=== PATIENT | male | born 1995 | race Caucasian/White ===

== ENCOUNTER → 2018-02-06 16:09 | Outpatient (CLI) | payer OTHER, MEDICAID, SELFPAY ==
[2018-02-06 17:33] LABS: Hemoglobin A1C% w Est Avg Glu 9.3 % (4.0-6.0)
[2018-02-06 18:06] LABS: Alanine Aminotransferase 36 IU/L (21-72); Albumin 4.6 g/dL (3.5-5.0); Albumin Globulin Ratio 1.6 (1.0-2.8); Alkaline Phosphatase 71 U/L (38-126); Aspartate Aminotransferase 23 IU/L (17-59); BUN Creatinine Ratio 21.7 (6-22); Bilirubin Total 0.7 mg/dL (0.2-1.3); Blood Urea Nitrogen 13 mg/dL (9-20); Calcium 10.1 mg/dL (8.4-10.2); Carbon Dioxide 27 mmol/L (22-32); Chloride 100 mmol/L (98-107); Cholesterol 208 mg/dL (140-199); Estimated Glomerular Filt Rate > 60.0 mL/min (>60); Globulin 2.8 g/dL (1.7-4.1); Glucose 123 mg/dL (70-100); HDL Cholesterol 63 mg/dL (40-60); HEMOLYSIS < 15 (0-50); LDL Cholesterol Calculated 118 mg/dL (<100); Potassium 4.1 mmol/L (3.4-5.1); Sodium 139 mmol/L (137-145); Total Protein 7.4 g/dL (6.3-8.2); Triglycerides 136 mg/dL (35-150)
== END ==
PROVIDERS: PCP Internal Medicine; Visit Provider Internal Medicine
DX: Z00.00 Encounter for general adult medical examination without abnormal findings (principal); E10.65 Type 1 diabetes mellitus with hyperglycemia
CPT/HCPCS: 36415; 80053; 80061; 83036; 87086

== ENCOUNTER → 2019-01-15 12:11 | Outpatient (CLI) | payer OTHER, MEDICAID, SELFPAY ==
[2019-01-15 13:24] LABS: Hemoglobin A1C% w Est Avg Glu 7.6 % (4.0-6.0)
== END ==
PROVIDERS: PCP Family Medicine; Visit Provider Family Medicine
DX: E10.9 Type 1 diabetes mellitus without complications (principal)
CPT/HCPCS: 36415; 83036

== ENCOUNTER → 2022-09-25 15:48 | Outpatient (CLI) | payer OTHER, MEDICAID, SELFPAY ==
[2022-09-25 16:06] LABS: Add Manual Diff / Slide Review NO; Basophils Absolute Auto 100 /uL (0-100); Basophils Percent Auto 0.8 % (0-2); Eosinophils Absolute Auto 100 /uL (0-450); Eosinophils Percent Auto 1.4 % (2-4); Hematocrit 43.4 % (41-53); Hemoglobin 14.7 g/dL (13.5-17.5); Lymphocytes Absolute Auto 2500 /uL (1100-4500); Lymphocytes Percent Auto 24.3 % (25-40); Mean Corpuscular Hemoglobin 27.5 PG (26-34); Mean Corpuscular Volume 80.9 fL (80-100); Monocytes Absolute Auto 700 /uL (0-900); Monocytes Percent Auto 6.5 % (3-14); Neutrophils Absolute Auto 6900 /uL (1500-7000); Platelet Count 237 X10^3/uL (150-400); Red Blood Cell Count 5.36 X10^6/uL (4.5-5.9); Red Cell Distribution Width 13.4 % (11.6-14.8); White Blood Cell Count 10.2 X10^3/uL (4.5-11.0)
[2022-09-25 16:49] LABS: Thyroid Stimulating Hormone 1.37 uIU/mL (0.47-4.68)
== END ==
PROVIDERS: PCP Family Medicine; Referring Provider Family Medicine; Visit Provider Family Medicine
DX: R53.83 Other fatigue (principal)
CPT/HCPCS: 36415; 84443; 85025

== ENCOUNTER → 2022-12-06 10:15 | Outpatient (CLI) | payer OTHER, MEDICAID, SELFPAY | PROVIDERS: PCP Family Medicine; Visit Provider Nurse Practitioner Family | DX: J02.9 Acute pharyngitis, unspecified (principal) | CPT/HCPCS: 87070 ==

== ENCOUNTER 2023-04-16 16:53 | Emergency (ER) | payer OTHER, MEDICAID, SELFPAY ==
[2023-04-16 17:19] VITALS: BP 112/70; PULSE 96; RESP 18; TEMP 36.6; O2SAT 99
[2023-04-16 18:10] LABS: Add Manual Diff / Slide Review NO; Basophils Absolute Auto 100 /uL (0-100); Basophils Percent Auto 0.8 % (0-2); Eosinophils Absolute Auto 100 /uL (0-450); Eosinophils Percent Auto 1.2 % (2-4); Hematocrit 40.9 % (41-53); Hemoglobin 14.4 g/dL (13.5-17.5); Lymphocytes Absolute Auto 2600 /uL (1100-4500); Lymphocytes Percent Auto 24.3 % (25-40); Mean Corpuscular HGB Conc 35.2 % (30-36); Mean Corpuscular Volume 79.6 fL (80-100); Monocytes Absolute Auto 800 /uL (0-900); Monocytes Percent Auto 7.5 % (3-14); Neutrophils Absolute Auto 7100 /uL (1500-7000); Neutrophils Percent Auto 66.2 % (50-75); Platelet Count 255 X10^3/uL (150-400); Red Blood Cell Count 5.14 X10^6/uL (4.5-5.9); Red Cell Distribution Width 13.4 % (11.6-14.8); White Blood Cell Count 10.7 X10^3/uL (4.5-11.0)
[2023-04-16 18:16] LABS: Prothrombin Time 11.1 SECONDS (10.1-12.7)
[2023-04-16 18:19] LABS: PTT Partial Thromboplastin Tim 30 SECONDS (26-36)
[2023-04-16 18:23] LABS: Alanine Aminotransferase 17 IU/L (<50); Albumin 4.7 g/dL (3.5-5.0); Albumin Globulin Ratio 1.3 (1.0-2.8); Alkaline Phosphatase 56 U/L (38-126); Aspartate Aminotransferase 21 IU/L (17-59); BUN Creatinine Ratio 18.2 (6-22); Bilirubin Total 0.5 mg/dL (0.2-1.3); Blood Urea Nitrogen 14 mg/dL (9-20); Carbon Dioxide 23 mmol/L (22-32); Chloride 103 mmol/L (98-107); Estimated Glomerular Filt Rate > 60 mL/min (>60); Globulin 3.6 g/dL (1.7-4.1); Glucose 107 mg/dL (70-100); HEMOLYSIS < 15 (0-50); Sodium 136 mmol/L (137-145); Total Protein 8.3 g/dL (6.3-8.2)
--- NOTE | 2023-04-16 19:34 | ED_ITS ---
HPI - GI Bleed General Chief complaint: GI Bleed Stated complaint: bloody stool, vomiting, diarrhea Time Seen by Provider: 04/16/23 18:04 Source: patient Mode of arrival: Ambulatory History of Present Illness HPI Narrative: 27-year-old transgender female presents with a chief complaint of some bloody stool off and on for the past 2 weeks. She states that she had recently been experimenting with rectal toys and admits that the 1st time she experimented she used a bottle that hurt a bit, she states that there was no chance that it broke or any retained foreign bodies. She had some spotting bleeding for the 1st few days afterwards and then seemed to be okay. She states that she has acquired inappropriate we designed toy intended for this activity and in the aftermath had a small amount of bleeding again. She denies any pain, fever or chills. She is not dizzy nor weak or lightheaded. She denies chest pain, shortness of breath or cough. She has not had any vomiting or constipation Related Data Home Medications Medication Instructions Recorded Confirmed spironolactone 100 mg tablet 100 mg PO BID 05/25/21 09/26/22 diclofenac sodium 1 % topical gel 2 g topical QID PRN 09/20/21 09/26/22 estradiol 2 mg tablet 2 mg PO BID 09/20/21 09/26/22 insulin aspart U-100 100 unit/mL 4 unit SUBCUT .COMPLEX 09/20/21 09/26/22 (3 mL) subcutaneous pen (Novolog FlexPen U-100 Insulin aspart) insulin glargine 100 unit/mL (3 30 unit SUBCUT BID 11/15/21 09/26/22 mL) subcutaneous pen (Lantus Solostar U-100 Insulin) famotidine 20 mg tablet (Acid 20 mg PO BID 09/25/22 09/26/22 Sales And Merchandising Representative (famotidine)) spironolactone 50 mg tablet 50 mg PO BID 09/25/22 09/26/22 Previous Rx's Medication Instructions Recorded progesterone micronized 100 mg 100 mg PO BEDTIME #90 caps 08/11/20 capsule fluticasone propionate 50 See Rx Instructions .Route 06/10/22 mcg/actuation nasal .COMPLEX #16 grams spray,suspension amoxicillin 875 mg-potassium 1 tab PO BID #14 tabs 12/06/22 clavulanate 125 mg tablet sertraline 100 mg tablet 200 mg PO BEDTIME #60 tabs 04/08/23 trazodone 50 mg tablet 100 mg PO BEDTIME PRN insomnia #30 04/08/23 tabs Allergies Allergy/AdvReac Type Severity Reaction Status Date / Time No Known Drug Allergies Allergy Verified 04/16/23 17:23 Review of Systems Review of Systems Narrative: GENERAL: Denies chills, fatigue, malaise, fever, sweats. HEENT: Denies sinus pain, ear pain, sore throat, difficulty swallowing, dizziness. RESPIRATORY: Denies dyspnea, cough, wheezing, hemoptysis, sputum. CARDIOVASCULAR: Denies chest pain, palpitations, orthopnea, edema, GASTROINTESTINAL: See HPI : Denies dysuria, frequency, incontinence, hematuria, urinary retention. MUSCULOSKELETAL: denies weakness, joint pain, or bony pain SKIN: Denies rash, skin lesions, or other NEUROLOGIC: Denies weakness, headache, numbness, change in speech, confusion, seizures, incoordination. PSYCHIATRIC: No concerning psychosocial issues. 12 point review of systems is negative except for those stated above Patient History Medical History Depression with anxiety Gender dysphoria Idiopathic pancreatitis (2013) Type 1 diabetes (2010) Family History Grandfather Diabetes mellitus Cancer Social History marital status: unmarried,single number of children: 0 household members: family lives independently: No caregiver/support person: Yes housing: house education level: high school occupational status: unemployed Smoking Status: Never smoker second hand exposure: No alcohol intake: never substance use type: does not use Smoking Status: Never smoker alcohol intake frequency: holidays/special occasions only Substance Use Type: marijuana Exam Narrative Exam Narrative: GENERAL: [27] year old patient appears stated age. Well-developed patient, in no obvious distress. HEAD: Atraumatic. Normocephalic. EYES: Pupils equal round and reactive. Extraocular motions intact. No scleral icterus. No injection or drainage. ENT: Nose without bleeding, purulent drainage. Throat without erythema, tonsillar hypertrophy or exudate. Airway patent. NECK: Trachea midline. Non tender CARDIOVASCULAR: Regular rate and rhythm without murmurs, gallops, or rubs. RESPIRATORY: Clear to auscultation. Breath sounds equal bilaterally. No wheezes, rales, or rhonchi. GASTROINTESTINAL: Abdomen soft, non-tender, nondistended. Normal bowel sounds RECTAL: No bleeding, fissure, no pain. Performed with patient permission and female nursing tile mason at the bedside EXTREMITIES: No edema or joint tenderness. BACK: Nontender without deformity or crepitance. No flank tenderness. NEURO: AOx3. SKIN: No rash or erythema of visible areas Initial Vital Signs Initial Vital Signs: Vital Signs Temperature 97.8 F 04/16/23 17:19 Pulse Rate 96 H 04/16/23 17:19 Respiratory Rate 18 04/16/23 17:19 Blood Pressure 112/70 04/16/23 17:19 Pulse Oximetry 99 04/16/23 17:19 Oxygen Delivery Method Room Air 04/16/23 17:19 Course Orders Ordered: ED Orders 04/16/23 17:50 Complete Blood Count AUTO DIFF Stat Comprehensive Metabolic Panel Stat PTT Partial Thromboplastin Clark Stat Prothrombin Time INR Stat Type and Screen Stat 04/16/23 19:50 CT abdomen pelvis w con Stat Discontinued Medications Ondansetron HCl (Ondansetron 4 Mg/2 Ml Inj) 4 mg IV NOW PRN PRN Reason: Nausea And Vomiting Last Admin: 04/16/23 20:17 Dose: 4 mg Documented By: RICO Ondansetron HCl (Ondansetron 4 Mg Odt) 4 mg SL NOW PRN PRN Reason: Nausea And Vomiting Pantoprazole Sodium (Pantoprazole 40 Mg Vial) 80 mg IV NOW ONE Stop: 04/16/23 17:25 Vital Signs Vital signs: Vital Signs - 8 hr 04/16/23 17:19 04/16/23 19:40 04/16/23 19:42 Temperature 97.8 F Pulse Rate 96 H 75 76 Respiratory Rate 18 Blood Pressure 112/70 Pulse Oximetry 99 94 94 Oxygen Delivery Method Room Air 04/16/23 19:42 04/16/23 20:08 04/16/23 20:30 Temperature Pulse Rate 78 76 Respiratory Rate Blood Pressure 117/64 Pulse Oximetry 96 95 Oxygen Delivery Method MDM - GI Bleed Lab Data 04/16/23 17:50 04/16/23 17:50 Labs: Lab Results 04/16/23 04/16/23 04/16/23 Range/Units 17:50 17:50 17:50 WBC 10.7 (4.5-11.0) X10^3/uL RBC 5.14 (4.5-5.9) X10^6/uL Hgb 14.4 (13.5-17.5) g/dL Hct 40.9 L (41-53) % MCV 79.6 L (80-100) fL MCH 28.0 (26-34) PG MCHC 35.2 (30-36) % RDW 13.4 (11.6-14.8) % Plt Count 255 (150-400) X10^3/uL Neut % (Auto) 66.2 (50-75) % Lymph % (Auto) 24.3 L (25-40) % [place] % (Auto) 7.5 (3-14) % Eos % (Auto) 1.2 L (2-4) % Baso % (Auto) 0.8 (0-2) % Neut # (Auto) 7100 H (5807-3090) /uL Lymph # (Auto) 2600 (3970-0424) /uL [place] # (Auto) 800 (0-900) /uL Eos # (Auto) 100 (0-450) /uL Baso # (Auto) 100 (0-100) /uL PT 11.1 (10.1-12.7) SECONDS INR 1.0 (0.9-1.3) APTT 30 (26-36) SECONDS Sodium 136 L (137-145) mmol/L Potassium 4.0 (3.4-5.1) mmol/L Chloride 103 (98-107) mmol/L Carbon Dioxide 23 (22-32) mmol/L BUN 14 (9-20) mg/dL Creatinine 0.77 (0.66-1.25) mg/dL Estimated GFR > 60 (>60) mL/min BUN/Creatinine Ratio 18.2 (6-22) Glucose 107 H (70-100) mg/dL Calcium 10.0 (8.4-10.2) mg/dL Total Bilirubin 0.5 (0.2-1.3) mg/dL AST 21 (17-59) IU/L ALT 17 (<50) IU/L Alkaline Phosphatase 56 (38-126) U/L Total Protein 8.3 H (6.3-8.2) g/dL Albumin 4.7 (3.5-5.0) g/dL Globulin 3.6 (1.7-4.1) g/dL Albumin/Globulin Ratio 1.3 (1.0-2.8) Blood Type Antibody Screen 04/16/23 Range/Units 17:50 WBC (4.5-11.0) X10^3/uL RBC (4.5-5.9) X10^6/uL Hgb (13.5-17.5) g/dL Hct (41-53) % MCV (80-100) fL MCH (26-34) PG MCHC (30-36) % RDW (11.6-14.8) % Plt Count (150-400) X10^3/uL Neut % (Auto) (50-75) % Lymph % (Auto) (25-40) % [place] % (Auto) (3-14) % Eos % (Auto) (2-4) % Baso % (Auto) (0-2) % Neut # (Auto) (8775-7960) /uL Lymph # (Auto) (0451-1532) /uL [place] # (Auto) (0-900) /uL Eos # (Auto) (0-450) /uL Baso # (Auto) (0-100) /uL PT (10.1-12.7) SECONDS INR (0.9-1.3) APTT (26-36) SECONDS Sodium (137-145) mmol/L Potassium (3.4-5.1) mmol/L Chloride (98-107) mmol/L Carbon Dioxide (22-32) mmol/L BUN (9-20) mg/dL Creatinine (0.66-1.25) mg/dL Estimated GFR (>60) mL/min BUN/Creatinine Ratio (6-22) Glucose (70-100) mg/dL Calcium (8.4-10.2) mg/dL Total Bilirubin (0.2-1.3) mg/dL AST (17-59) IU/L ALT (<50) IU/L Alkaline Phosphatase (38-126) U/L Total Protein (6.3-8.2) g/dL Albumin (3.5-5.0) g/dL Globulin (1.7-4.1) g/dL Albumin/Globulin Ratio (1.0-2.8) Blood Type A Positive Antibody Screen Negative Urine Dip Bedside Urine Glucose Negative Bedside Urine Bilirubin - Negative Bedside Urine Ketone - Negative Urine Specific [place] 1.020 Bedside Urine Occult Blood - Negative Bedside Urine pH 6.0 Bedside Urine Protein - Negative Bedside Urine Urobilinogen - Negative Bedside Urine Nitrite - Negative Bedside Urine Leukocytes - Negative Esterase MDM Narrative Medical decision making narrative: [27] year old patient presents with episodes of bloody stool off and on for 2 weeks in the aftermath of using a rectal sexual toy Multiple etiologies for patient's symptoms considered including, but not limited to: [Fissure versus perforation versus other irritation versus retained foreign body versus other] Prior Charts reviewed in our EMR Primary Historian: patient Labs reviewed and interpreted by myself: No leukocytosis or left shift, no signs of anemia, renal function and electrolytes at baseline Imaging reviewed: CT of the abdomen and pelvis shows no retained foreign body, perforation, obstruction or other significant abnormality Patient's history and physical exam are reassuring, labs are unremarkable and imaging shows no evidence of perforation or retained foreign body. No bleeding or pain on rectal exam. No further workup necessary Findings and discharge diagnosis discussed with patient/family followed by verbalization of understanding Return precautions discussed with patient/family whom verbalize understanding of diagnosis and plan Discharge Plan Departure Patient Disposition: Home Clinical Impression: Lower gastrointestinal hemorrhage Instructions: Gastrointestinal Bleeding Activity Restrictions/Additional Instructions: *You have been diagnosed with [rectal bleeding. As we discussed your history and physical exam are reassuring, the labs show no change in your blood count or signs of infection and the CT scan] does not show any evidence of infection, perforation or foreign body *What to do: *Please continue to take your regular medications as directed. [ *Please follow up with your primary care provider in 2-3 days, call for an appointment. Let them know you were seen in the Emergency Department and that we ask that you be seen in follow up. We will electronically transmit a record of today's note if your PCP is in our system *If you do not have a primary care provider please contact the [facility] Resource line at [phone]. They will ask some questions about your medical history and help get you set up with a doctor in the community. *Return to Emergency Department if you should have any new, worsening or concerning symptoms, such as [fever greater than 101 F, shaking chills, w orsening pain, persistent vomiting or other bothersome symptoms] Prescriptions: No Action spironolactone 50 mg tablet 50 mg PO BID Rx Instructions: take 1 tablet twice daily with 100 mg tablet famotidine [Acid Sales And Merchandising Representative (famotidine)] 20 mg tablet 20 mg PO BID amoxicillin-pot clavulanate 875-125 mg tablet 1 tab PO BID Qty: 14 0RF Lantus Solostar U-100 Insulin 100 unit/mL (3 mL) insulin pen 30 unit SUBCUT BID Patient Comments: ONLY IF PUMP NOT WORKING OR UNAVAILABLE spironolactone 100 mg tablet 100 mg PO BID diclofenac sodium 1 % gel 2 g TOP QID PRN estradiol 2 mg tablet 2 mg PO BID sertraline 100 mg tablet 200 mg PO BEDTIME Qty: 60 5RF trazodone 50 mg tablet 100 mg PO BEDTIME PRN (Reason: insomnia) Qty: 30 5RF Rx Instructions: OK to repeat dose after 60 min if not sleeping progesterone micronized 100 mg capsule 100 mg PO BEDTIME Qty: 90 0RF fluticasone propionate 50 mcg/actuation spray,suspension See Rx Instructions .ROUTE .COMPLEX Qty: 16 3RF Dose Instruction: ADMINISTER 2 SPRAYS INTRANASALLY TWICE A DAY Rx Instructions: ADMINISTER 2 SPRAYS INTRANASALLY TWICE A DAY Novolog FlexPen U-100 Insulin 100 unit/mL (3 mL) insulin pen 4 unit SUBCUT .COMPLEX Patient Comments: ONLY USES IF PUMP NOT WORKING OR UNAVAILABLE Rx Instructions: take 7 units 5 times a day Referrals: Arpita Gallardo MD [Primary Care Provider] - Stand Alone Forms: Patient Portal/API
[2023-04-16 19:40] VITALS: PULSE 75; O2SAT 94
[2023-04-16 19:42] VITALS: BP 117/64; PULSE 76; O2SAT 94
--- NOTE | 2023-04-16 19:50 | DI.CT.S_ITS ---
PROCEDURE: CT ABDOMEN PELVIS W CON INDICATIONS: rectal bleeding, pain, foreign body, perf? TECHNIQUE: After the administration of oral and IV contrast, axial sections were acquired from the lung bases to the pubic symphysis. Coronal and sagittal reformats were performed. For radiation dose reduction, the following was used: automated exposure control, adjustment of mA and/or kV according to patient size. COMPARISON: [facility], CT, ABDOMEN/PELVIS WITH CONTRAST, 06/15/2014, 5:30. FINDINGS: Image quality: There Lung bases: There is minimal dependent atelectasis. Heart: Heart is normal in size. ABDOMEN: Liver: No mass lesion. Gallbladder: Within normal limits without calcified gallstones. Biliary ducts: No biliary ductal dilatation. Pancreas: Unremarkable. Spleen: Normal in size. Adrenal Glands: No adrenal nodules. Kidneys and Ureters: No hydronephrosis. Stomach and Bowel: Stomach, small bowel loops, and colon are normal in caliber and wall thickness. The appendix demonstrates mild fluid distention measuring up to 0.8 cm without periappendiceal fat stranding or fluid. No radiopaque foreign bodies demonstrated within the colon. Peritoneum: No abnormal intraperitoneal fluid. No free air. Ventral Wall: No hernia. Abdominal Nodes: No retroperitoneal or mesenteric adenopathy by size criteria. Vessels: Aorta and inferior vena cava are normal in size. PELVIS: Pelvic Organs: Unremarkable. Bladder: Unremarkable. Pelvic Nodes: No enlarged lymph nodes. Miscellaneous: No inguinal hernias. No perirectal or perianal abscess collection. Bones: Visualized osseous structures demonstrate no suspicious focal lesions. IMPRESSION: 1. No radiopaque foreign body or evidence of proctocolitis. No evidence of bowel perforation. 2. No perirectal or perianal abscess collection. 3. Borderline distention of the appendix without definite evidence of appendicitis. Dictated by: Grant Maza M.D. on 04/16/2023 at 20:31 Approved by: Grant Maza M.D. on 04/16/2023 at 20:43
[2023-04-16 20:08] VITALS: PULSE 78; O2SAT 96
[2023-04-16] MEDS: ONDANSETRON 4 MG/2 ML INJ IV (20:17)
[2023-04-16 20:30] VITALS: PULSE 76; O2SAT 95
== END 2023-04-16 21:48 | disposition home or self-care (01) ==
PROVIDERS: Emergency Medicine; Emergency Provider Emergency Medicine; PCP Family Medicine
DX: K92.2 Gastrointestinal hemorrhage, unspecified (principal); Z79.899 Other long term (current) drug therapy
CPT/HCPCS: 36415; 74177; 80053; 81003; 85025; 85610; 85730; 86850; 86900; 86901; 96374; 99284; J2405; Q9967

== ENCOUNTER → 2023-08-16 12:15 | Outpatient (CLI) | payer OTHER, MEDICAID, SELFPAY ==
[2023-08-16 13:09] LABS: Influenza A - CEPHEID Flu A NEGATIVE (NEGATIVE); Influenza B - CEPHEID Flu B NEGATIVE (NEGATIVE); Respiratory Syncytial Virus Negative (Negative)
[2023-08-16 13:11] LABS: COVID-19 CEPHEID 4-PLEX PCR Negative (Negative)
== END ==
PROVIDERS: PCP Family Medicine; Visit Provider Physician Assistant
DX: R11.10 Vomiting, unspecified (principal); R11.0 Nausea; R53.83 Other fatigue; R53.81 Other malaise; R42 Dizziness and giddiness
CPT/HCPCS: 0241U

== ENCOUNTER 2023-08-18 13:47 | Emergency (ER) | payer OTHER, MEDICAID, SELFPAY ==
[2023-08-18 14:02] VITALS: BP 120/71; PULSE 96; RESP 20; TEMP 36.3; O2SAT 96; BMI 30.5
[2023-08-18] MEDS: ONDANSETRON 4 MG/2 ML INJ IV (14:29)
[2023-08-18 14:34] LABS: Add Manual Diff / Slide Review YES; Hematocrit 37.3 % (41-53); Hemoglobin 12.6 g/dL (13.5-17.5); Mean Corpuscular HGB Conc 33.7 % (30-36); Mean Corpuscular Hemoglobin 27.1 PG (26-34); Mean Corpuscular Volume 80.2 fL (80-100); Platelet Count 152 X10^3/uL (150-400); Red Blood Cell Count 4.65 X10^6/uL (4.5-5.9); Red Cell Distribution Width 13.8 % (11.6-14.8); White Blood Cell Count 11.2 X10^3/uL (4.5-11.0)
[2023-08-18 15:04] LABS: Alanine Aminotransferase 100 IU/L (<50); Albumin 4.1 g/dL (3.5-5.0); Alkaline Phosphatase 112 U/L (38-126); Aspartate Aminotransferase 88 IU/L (17-59); BUN Creatinine Ratio 7.2 (6-22); Bilirubin Total 0.9 mg/dL (0.2-1.3); Blood Urea Nitrogen 6 mg/dL (9-20); Calcium 9.3 mg/dL (8.4-10.2); Carbon Dioxide 21 mmol/L (22-32); Chloride 97 mmol/L (98-107); Estimated Glomerular Filt Rate > 60 mL/min (>60); Glucose 360 mg/dL (70-100); HEMOLYSIS < 15 (0-50); Lipase 20 U/L (23-300); Sodium 128 mmol/L (137-145); Total Protein 8.1 g/dL (6.3-8.2)
[2023-08-18 15:23] LABS: Neutrophils Absolute Manual 4256 /uL (3000-5900); Total Cells Counted 100
[2023-08-18 15:24] LABS: Platelet Estimate Decreased on smear; RBC Morphology Normal Morphology; Smudge Cells 1+
--- NOTE | 2023-08-18 18:49 | PC.NURSE ---
Pt came to the emergency dept today with parent because she has been experiencing increasding abd pain, h/c and low blood sugar. BG 75 and states that she usually runs about 150-160. Pt states that she has been experiencing some mucousy diarrhea and abd cramps that she rates as a 5/10 pain. Pt seen at [facility] and diagnosed with stomach bug according to parent at bedside. pt spoke with PCP who advised pt to come to the ed to be seen for further evaluation. Pt a&ox4.
--- NOTE | 2023-08-18 19:01 | ED.ABDPAIN ---
HPI - Abdominal Pain General Chief Complaint: Abdominal Pain Stated Complaint: PANCREAS FLARE UP, T1D Time Seen by Provider: 08/18/23 18:17 Source: patient and family Mode of arrival: Ambulatory History of Present Illness HPI narrative: Patient 27-year-old transgender male to female, idiopathic pancreatitis presenting today with a few days of nausea vomiting she was seen by walk-in clinic on August 16. At that time she was having some lower abdominal pain cough. Has been sweaty often on. Reports 1 episode of diarrhea. Related Data Home Medications Medication Instructions Recorded Confirmed spironolactone 100 mg tablet 100 mg PO BID 05/25/21 08/16/23 diclofenac sodium 1 % topical gel 2 g topical QID PRN 09/20/21 08/16/23 estradiol 2 mg tablet 2 mg PO BID 09/20/21 08/16/23 insulin aspart U-100 100 unit/mL 4 unit SUBCUT .COMPLEX 09/20/21 08/16/23 (3 mL) subcutaneous pen (Novolog FlexPen U-100 Insulin aspart) insulin glargine 100 unit/mL (3 30 unit SUBCUT BID 11/15/21 08/16/23 mL) subcutaneous pen (Lantus Solostar U-100 Insulin) famotidine 20 mg tablet (Acid 20 mg PO BID 09/25/22 08/16/23 Guest History Clerk (famotidine)) spironolactone 50 mg tablet 50 mg PO BID 09/25/22 08/16/23 Previous Rx's Medication Instructions Recorded progesterone micronized 100 mg 100 mg PO BEDTIME #90 caps 08/11/20 capsule fluticasone propionate 50 See Rx Instructions .Route 06/10/22 mcg/actuation nasal .COMPLEX #16 grams spray,suspension amoxicillin 875 mg-potassium 1 tab PO BID #14 tabs 12/06/22 clavulanate 125 mg tablet sertraline 100 mg tablet 200 mg (2 x 100 mg) PO BEDTIME 05/20/23 #180 tabs trazodone 50 mg tablet 100 mg (2 x 50 mg) PO BEDTIME PRN 08/06/23 insomnia #60 tabs ondansetron 4 mg disintegrating 4 mg PO Q6H PRN nausea and 08/16/23 tablet vomiting #10 tabs ondansetron 4 mg disintegrating 4 mg PO Q8H PRN nausea and 08/18/23 tablet vomiting #20 tabs Allergies Allergy/AdvReac Type Severity Reaction Status Date / Time No Known Drug Allergies Allergy Verified 08/16/23 12:19 Patient History Medical History (Updated 08/18/23 @ 19:43 by Nery Fox DO) Gender dysphoria Depression with anxiety Type 1 diabetes (2010) Idiopathic pancreatitis (2013) Family History Grandfather Diabetes mellitus Cancer Social History marital status: unmarried,single number of children: 0 household members: family lives independently: No caregiver/support person: Yes housing: house education level: high school occupational status: unemployed Smoking Status: Never smoker second hand exposure: No alcohol intake: never substance use type: does not use Smoking Status: Never smoker alcohol intake frequency: a few times a month Substance Use Type: marijuana Exam Initial Vital Signs Initial Vital Signs: Vital Signs Temperature 97.3 F L 08/18/23 14:02 Pulse Rate 96 H 08/18/23 14:02 Respiratory Rate 20 08/18/23 14:02 Blood Pressure 120/71 08/18/23 14:02 Pulse Oximetry 96 08/18/23 14:02 Oxygen Delivery Method Room Air 08/18/23 14:02 GENERAL: Well-appearing female HEENT: Head atraumatic,EOMI, pupils reactive, face symmetric, moist mucous membranes CARDIOVASCULAR: Regular rate and rhythm without murmurs, rubs or gallops. RESPIRATORY: Breath sounds equal bilaterally, no wheezes rales or rhonchi. ABDOMEN: Soft, minimally tender throughout no localization EXTREMITIES: Normal range of motion, no clubbing or edema. Neurovascularly intact NEUROLOGICAL: Alert and oriented x4.Normal gait and speech. SKIN: Warm, dry, no laceration, no petechiae, no rashes or lesions. Course Orders Ordered: Discontinued Medications Ondansetron HCl (Ondansetron 4 Mg/2 Ml Inj) 4 mg IV NOW PRN PRN Reason: Nausea And Vomiting Last Admin: 08/18/23 14:29 Dose: 4 mg Documented By: SAMANTHA Ondansetron HCl (Ondansetron 4 Mg Odt) 4 mg PO NOW PRN PRN Reason: Nausea And Vomiting Vital Signs Vital signs: Vital Signs - 8 hr 08/18/23 19:30 08/18/23 20:00 08/18/23 20:03 Pulse Rate 87 91 H 91 H Blood Pressure Pulse Oximetry 96 95 94 Oxygen Delivery Method Room Air 08/18/23 20:04 Pulse Rate Blood Pressure 117/69 Pulse Oximetry Oxygen Delivery Method MDM - Abdominal Pain Lab Data 08/18/23 14:23 08/18/23 14:23 Labs: Lab Results 08/18/23 Range/Units 14:23 WBC 11.2 H (4.5-11.0) X10^3/uL RBC 4.65 (4.5-5.9) X10^6/uL Hgb 12.6 L (13.5-17.5) g/dL Hct 37.3 L (41-53) % MCV 80.2 (80-100) fL MCH 27.1 (26-34) PG MCHC 33.7 (30-36) % RDW 13.8 (11.6-14.8) % Plt Count 152 (150-400) X10^3/uL Neut % (Auto) Not Reportable Lymph % (Auto) Not Reportable [place] % (Auto) Not Reportable Eos % (Auto) Not Reportable Baso % (Auto) Not Reportable Lymph # (Auto) Not Reportable [place] # (Auto) Not Reportable Baso # (Auto) Not Reportable Total Counted 100 Seg Neutrophils % 38.0 (38-70) % Lymphocytes % (Manual) 25.0 (25-45) % Atypical Lymphs % 24.0 H ( - 0) % Monocytes % (Manual) 12.0 H (2-11) % Basophils % (Manual) 1.0 (0-1) % Neutrophils # (Manual) 4256 (9108-6585) /uL Smudge Cells 1+ H Platelet Estimate Decreased on smear RBC Morphology Normal morphology Sodium 128 L (137-145) mmol/L Potassium 4.0 (3.4-5.1) mmol/L Chloride 97 L (98-107) mmol/L Carbon Dioxide 21 L (22-32) mmol/L BUN 6 L (9-20) mg/dL Creatinine 0.83 (0.66-1.25) mg/dL Estimated GFR > 60 (>60) mL/min BUN/Creatinine Ratio 7.2 (6-22) Glucose 360 H (70-100) mg/dL Calcium 9.3 (8.4-10.2) mg/dL Total Bilirubin 0.9 (0.2-1.3) mg/dL AST 88 H (17-59) IU/L ALT 100 H (<50) IU/L Alkaline Phosphatase 112 (38-126) U/L Total Protein 8.1 (6.3-8.2) g/dL Albumin 4.1 (3.5-5.0) g/dL Globulin 4.0 (1.7-4.1) g/dL Albumin/Globulin Ratio 1.0 (1.0-2.8) Lipase 20 L (23-300) U/L Point of care testing: Point of Care Testing Glucose POC 61 Urine Dip Bedside Urine Glucose 1000 mg/dl Bedside Urine Bilirubin - Negative Bedside Urine Ketone +++ 80 Urine Specific [place] 1.010 Bedside Urine Occult Blood - Negative Bedside Urine pH 6.0 Bedside Urine Protein - Negative Bedside Urine Urobilinogen - Negative Bedside Urine Nitrite - Negative Bedside Urine Leukocytes - Negative Esterase MDM Narrative Medical decision making narrative: Patient is a 27-year-old female history of insulin-dependent diabetes presenting today with ongoing diffuse abdominal pain and nausea. There was concern of some pancreatitis flare-up. Reports that glucose has been stable. No significant diarrhea or fever. Blood work has been reviewed 11.2, sodium 128, potassium 4.0, chloride 97, bicarb 21, BUN 6, creatinine 0.8, glucose 360, total bilirubin 0.9, AST 88, ALT 100 both slightly higher than previously lipase 20 At this time patient has mild diffuse all-over abdominal pain no significant right upper quadrant pain or right lower quadrant pain. Mild elevation in liver enzymes today no evidence of DKA. Anion gap 10 No vomiting in the ED appears comfortable. Discussed going home with ongoing anti nausea medications. At this is time they agree to that. If ongoing issues may require imaging. Discharge Plan Departure Patient Disposition: Home Clinical Impression: Abdominal pain Instructions: DI for Abdominal Pain-Adult Activity Restrictions/Additional Instructions: *You have been diagnosed with abdominal pain, viral illness *What to do: At this time no evidence of DKA or pancreatitis *Continue to take medications as directed Zofran 4 mg every 8 hours if needed nausea or vomiting *Follow up with your primary care provider in 2-3 days or call [phone] *Return to ER if you should have increased abdominal pain nausea vomiting inability to tolerate fluids or any new, worsening or concerning symptoms Prescriptions: New ondansetron 4 mg tablet,disintegrating 4 mg PO Q8H PRN (Reason: nausea and vomiting) Qty: 20 0RF No Action spironolactone 50 mg tablet 50 mg PO BID Rx Instructions: take 1 tablet twice daily with 100 mg tablet famotidine [Acid Guest History Clerk (famotidine)] 20 mg tablet 20 mg PO BID amoxicillin-pot clavulanate 875-125 mg tablet 1 tab PO BID Qty: 14 0RF Lantus Solostar U-100 Insulin 100 unit/mL (3 mL) insulin pen 30 unit SUBCUT BID Patient Comments: ONLY IF PUMP NOT WORKING OR UNAVAILABLE ondansetron 4 mg tablet,disintegrating 4 mg PO Q6H PRN (Reason: nausea and vomiting) Qty: 10 0RF spironolactone 100 mg tablet 100 mg PO BID diclofenac sodium 1 % gel 2 g TOP QID PRN estradiol 2 mg tablet 2 mg PO BID progesterone micronized 100 mg capsule 100 mg PO BEDTIME Qty: 90 0RF fluticasone propionate 50 mcg/actuation spray,suspension See Rx Instructions .ROUTE .COMPLEX Qty: 16 3RF Dose Instruction: ADMINISTER 2 SPRAYS INTRANASALLY TWICE A DAY Rx Instructions: ADMINISTER 2 SPRAYS INTRANASALLY TWICE A DAY sertraline 100 mg tablet 200 mg PO BEDTIME Qty: 180 1RF trazodone 50 mg tablet 100 mg PO BEDTIME PRN (Reason: insomnia) Qty: 60 5RF Novolog FlexPen U-100 Insulin 100 unit/mL (3 mL) insulin pen 4 unit SUBCUT .COMPLEX Patient Comments: ONLY USES IF PUMP NOT WORKING OR UNAVAILABLE Rx Instructions: take 7 units 5 times a day Referrals: Arpita Gallardo MD [Primary Care Provider] - Stand Alone Forms: Patient Portal/API
[2023-08-18 19:30] VITALS: PULSE 87; O2SAT 96
--- NOTE | 2023-08-18 19:35 | PC.NURSE ---
Pt BG was 61, gave apple juice, saline and paddy crackers w/ peanut butter.
[2023-08-18 20:00] VITALS: PULSE 91; O2SAT 95
[2023-08-18 20:03] VITALS: PULSE 91; O2SAT 94
[2023-08-18 20:04] VITALS: BP 117/69
== END 2023-08-18 20:12 | disposition home or self-care (01) ==
PROVIDERS: Emergency Medicine; Emergency Provider Emergency Medicine; PCP Family Medicine
DX: R10.9 Unspecified abdominal pain (principal); R11.2 Nausea with vomiting, unspecified
CPT/HCPCS: 36415; 80053; 81003; 82962; 83690; 85007; 85025; 96374; 99284; J2405

== ENCOUNTER 2023-08-24 09:19 | Emergency (ER) | payer OTHER, MEDICAID, SELFPAY ==
[2023-08-24 09:25] VITALS: BP 93/66; PULSE 117; RESP 20; TEMP 36.6; O2SAT 96; BMI 31.0
--- NOTE | 2023-08-24 09:39 | ED.NAVMDI ---
HPI - Nausea/Vomiting/Diarrhea General Chief complaint: Nausea/Vomiting/Diarrhea Stated complaint: Nausea, sore throat, muscle aches, lower abd pain Time Seen by Provider: 08/24/23 09:21 Source: patient Mode of arrival: Ambulatory History of Present Illness HPI Narrative: Patient is a 27-year-old transgender male to female who is here for evaluation 3-4 days of nausea, sore throat, muscle aches, abdominal discomfort. No fevers. No diarrhea. No urinary symptoms. Abdominal discomfort is actually improved somewhat from onset of symptoms. No prior abdominal surgeries. No recent travel. Is a type 1 diabetic. Has had pancreatitis in the past. Related Data Home Medications Medication Instructions Recorded Confirmed spironolactone 100 mg tablet 100 mg PO BID 05/25/21 08/16/23 diclofenac sodium 1 % topical gel 2 g topical QID PRN 09/20/21 08/16/23 estradiol 2 mg tablet 2 mg PO BID 09/20/21 08/16/23 insulin aspart U-100 100 unit/mL 4 unit SUBCUT .COMPLEX 09/20/21 08/16/23 (3 mL) subcutaneous pen (Novolog FlexPen U-100 Insulin aspart) insulin glargine 100 unit/mL (3 30 unit SUBCUT BID 11/15/21 08/16/23 mL) subcutaneous pen (Lantus Solostar U-100 Insulin) famotidine 20 mg tablet (Acid 20 mg PO BID 09/25/22 08/16/23 Scagliola Mechanic (famotidine)) spironolactone 50 mg tablet 50 mg PO BID 09/25/22 08/16/23 Previous Rx's Medication Instructions Recorded progesterone micronized 100 mg 100 mg PO BEDTIME #90 caps 08/11/20 capsule fluticasone propionate 50 See Rx Instructions .Route 06/10/22 mcg/actuation nasal .COMPLEX #16 grams spray,suspension amoxicillin 875 mg-potassium 1 tab PO BID #14 tabs 12/06/22 clavulanate 125 mg tablet sertraline 100 mg tablet 200 mg (2 x 100 mg) PO BEDTIME 05/20/23 #180 tabs trazodone 50 mg tablet 100 mg (2 x 50 mg) PO BEDTIME PRN 08/06/23 insomnia #60 tabs ondansetron 4 mg disintegrating 4 mg PO Q6H PRN nausea and 08/16/23 tablet vomiting #10 tabs ondansetron 4 mg disintegrating 4 mg PO Q8H PRN nausea and 08/18/23 tablet vomiting #20 tabs Allergies Allergy/AdvReac Type Severity Reaction Status Date / Time No Known Drug Allergies Allergy Verified 08/16/23 12:19 Review of Systems Constitutional Constitutional: Reports system reviewed and no additional complaints, except as documented ENT Ears, Nose, Mouth, and Throat: Reports system reviewed and no additional complaints, except as documented Cardiovascular Cardiovascular: Reports system reviewed and no additional complaints, except as documented Respiratory Respiratory: Reports system reviewed and no additional complaints, except as documented Gastrointestinal Gastrointestinal: Reports system reviewed and no additional complaints, except as documented Genitourinary Genitourinary: Reports system reviewed and no additional complaints, except as documented Integumentary/Breasts Skin/Breast: Reports system reviewed and no additional complaints, except as documented Patient History Medical History (Updated 08/24/23 @ 10:53 by Filiberto Blunt DO) Gender dysphoria Depression with anxiety Type 1 diabetes (2010) Idiopathic pancreatitis (2013) Family History Grandfather Diabetes mellitus Cancer Social History marital status: unmarried,single number of children: 0 household members: family lives independently: No caregiver/support person: Yes housing: house education level: high school occupational status: unemployed Smoking Status: Never smoker second hand exposure: No alcohol intake: never substance use type: does not use Smoking Status: Never smoker alcohol intake frequency: a few times a month Substance Use Type: marijuana Exam Initial Vital Signs Initial Vital Signs: Vital Signs Temperature 97.9 F 08/24/23 09:25 Pulse Rate 117 H 08/24/23 09:25 Respiratory Rate 20 08/24/23 09:25 Blood Pressure 93/66 08/24/23 09:25 Pulse Oximetry 96 08/24/23 09:25 Oxygen Delivery Method Room Air 08/24/23 09:25 Const General: cooperative and No ill appearing HENMT Head: normal to inspection and normocephalic Throat: no peritonsillar masses and other (Enlarged tonsils) Resp Effort & Inspection: normal respiratory effort Auscultation: clear to auscultation bilaterally Cardio Rate: tachycardic Rhythm: regular rhythm GI Inspection: non-distended Palpation: soft, No firm, No guarding and tender (Mild diffuse tenderness) Skin General: no rashes or lesions noted Neuro General: patient alert, patient awake and moves all extremities Course Orders Ordered: ED Orders 08/24/23 09:45 Complete Blood Count AUTO DIFF Stat Comprehensive Metabolic Panel Stat Ketones (Beta-Hydroxybutyrate) Stat Lipase Stat Magnesium Stat Monotest Stat Phosphorous Stat 08/24/23 10:02 Covid-19 + FLU A/B + RSV - PCR Stat Discontinued Medications Sodium Chloride (Normal Saline 0.9%) 1,000 mls @ 1,000 mls/hr IV BOLUS ONE Stop: 08/24/23 10:21 Last Admin: 08/24/23 09:45 Dose: 1,000 mls/hr Documented By: ANTONY Ondansetron HCl (Ondansetron 4 Mg/2 Ml Inj) 4 mg IV NOW ONE Stop: 08/24/23 09:23 Last Admin: 08/24/23 09:45 Dose: 4 mg Documented By: ANTONY Vital Signs Vital signs: Vital Signs - 8 hr 08/24/23 09:25 08/24/23 10:03 08/24/23 10:03 Temperature 97.9 F Pulse Rate 117 H 106 H 108 H Respiratory Rate 20 18 Blood Pressure 93/66 132/67 Pulse Oximetry 96 98 95 Oxygen Delivery Method Room Air Room Air 08/24/23 10:15 08/24/23 10:30 08/24/23 10:30 Temperature Pulse Rate 101 H 96 H Respiratory Rate Blood Pressure 116/74 Pulse Oximetry 96 95 Oxygen Delivery Method 08/24/23 10:45 Temperature Pulse Rate 105 H Respiratory Rate Blood Pressure Pulse Oximetry 96 Oxygen Delivery Method MDM - Nausea/Vomiting/Diarrhea Lab Data 08/24/23 09:45 08/24/23 09:45 Labs: Lab Results 08/24/23 08/24/23 Range/Units 09:45 10:02 WBC 16.6 H (4.5-11.0) X10^3/uL RBC 4.49 L (4.5-5.9) X10^6/uL Hgb 12.0 L (13.5-17.5) g/dL Hct 35.7 L (41-53) % MCV 79.5 L (80-100) fL MCH 26.7 (26-34) PG MCHC 33.5 (30-36) % RDW 13.8 (11.6-14.8) % Plt Count 184 (150-400) X10^3/uL Neut % (Auto) Not Reportable Lymph % (Auto) Not Reportable [place] % (Auto) Not Reportable Eos % (Auto) Not Reportable Baso % (Auto) Not Reportable Lymph # (Auto) Not Reportable [place] # (Auto) Not Reportable Baso # (Auto) Not Reportable Total Counted 100 Seg Neutrophils % 45.0 (38-70) % Band Neutrophils % 3.0 (3-7) % Lymphocytes % (Manual) 21.0 L (25-45) % Atypical Lymphs % 23.0 H ( - 0) % Monocytes % (Manual) 7.0 (2-11) % Eosinophils % (Manual) 1.0 L (2-4) % Neutrophils # (Manual) 7968 H (6984-0002) /uL RBC Morphology Normal morphology Sodium 129 L (137-145) mmol/L Potassium 4.0 (3.4-5.1) mmol/L Chloride 98 (98-107) mmol/L Carbon Dioxide 17 L (22-32) mmol/L BUN 9 (9-20) mg/dL Creatinine 0.68 (0.66-1.25) mg/dL Estimated GFR > 60 (>60) mL/min BUN/Creatinine Ratio 13.2 (6-22) Glucose 166 H D (70-100) mg/dL Calcium 9.2 (8.4-10.2) mg/dL Phosphorus 2.1 L (2.5-4.5) mg/dL Magnesium 1.9 (1.6-2.3) mg/dL Total Bilirubin 1.2 (0.2-1.3) mg/dL AST 50 (17-59) IU/L ALT 78 H (<50) IU/L Alkaline Phosphatase 149 H (38-126) U/L Total Protein 8.4 H (6.3-8.2) g/dL Albumin 4.1 (3.5-5.0) g/dL Globulin 4.3 H (1.7-4.1) g/dL Albumin/Globulin Ratio 1.0 (1.0-2.8) Lipase 14 L (23-300) U/L Ketones 3.62 H (<0.27) mmol/L SARS-CoV-2 (PCR) Negative (Negative) Monoscreen Positive H (Negative) Influenza A (RT-PCR) Flu a negative (NEGATIVE) Influenza B (RT-PCR) Flu b negative (NEGATIVE) RSV (PCR) Negative (Negative) MDM Narrative Medical decision making narrative: Has a benign exam. Not in DKA. Anion gap of 14. Lipase is unremarkable. Has a benign exam. Is positive for mono. I suspect that this is the cause of presenting symptoms. No fevers. No indication for admission to the hospital. Recommended continuing all medications as directed. No indication for antibiotics. Return precautions given. Discharge Plan Departure Patient Disposition: Home Clinical Impression: Mononucleosis Instructions: DI for Mononucleosis-Adult Activity Restrictions/Additional Instructions: You can take Tylenol or ibuprofen for any fevers or discomfort. Recommend a bland diet and increasing fluids. Continue all of your medications as directed. Return to the emergency department for new symptoms. Prescriptions: No Action spironolactone 50 mg tablet 50 mg PO BID Rx Instructions: take 1 tablet twice daily with 100 mg tablet famotidine [Acid Scagliola Mechanic (famotidine)] 20 mg tablet 20 mg PO BID amoxicillin-pot clavulanate 875-125 mg tablet 1 tab PO BID Qty: 14 0RF Lantus Solostar U-100 Insulin 100 unit/mL (3 mL) insulin pen 30 unit SUBCUT BID Patient Comments: ONLY IF PUMP NOT WORKING OR UNAVAILABLE ondansetron 4 mg tablet,disintegrating 4 mg PO Q6H PRN (Reason: nausea and vomiting) Qty: 10 0RF spironolactone 100 mg tablet 100 mg PO BID diclofenac sodium 1 % gel 2 g TOP QID PRN estradiol 2 mg tablet 2 mg PO BID progesterone micronized 100 mg capsule 100 mg PO BEDTIME Qty: 90 0RF fluticasone propionate 50 mcg/actuation spray,suspension See Rx Instructions .ROUTE .COMPLEX Qty: 16 3RF Dose Instruction: ADMINISTER 2 SPRAYS INTRANASALLY TWICE A DAY Rx Instructions: ADMINISTER 2 SPRAYS INTRANASALLY TWICE A DAY sertraline 100 mg tablet 200 mg PO BEDTIME Qty: 180 1RF trazodone 50 mg tablet 100 mg PO BEDTIME PRN (Reason: insomnia) Qty: 60 5RF Novolog FlexPen U-100 Insulin 100 unit/mL (3 mL) insulin pen 4 unit SUBCUT .COMPLEX Patient Comments: ONLY USES IF PUMP NOT WORKING OR UNAVAILABLE Rx Instructions: take 7 units 5 times a day ondansetron 4 mg tablet,disintegrating 4 mg PO Q8H PRN (Reason: nausea and vomiting) Qty: 20 0RF Referrals: Arpita Gallardo MD [Primary Care Provider] - Stand Alone Forms: Patient Portal/API
[2023-08-24] MEDS: ONDANSETRON 4 MG/2 ML INJ IV (09:45)
[2023-08-24] MEDS: SODIUM CHLORIDE 0.9% 1,000 ML 1000 ML IV (09:45)
[2023-08-24 10:02] LABS: Hematocrit 35.7 % (41-53); Mean Corpuscular HGB Conc 33.5 % (30-36); Mean Corpuscular Hemoglobin 26.7 PG (26-34); Mean Corpuscular Volume 79.5 fL (80-100); Platelet Count 184 X10^3/uL (150-400); Red Blood Cell Count 4.49 X10^6/uL (4.5-5.9); Red Cell Distribution Width 13.8 % (11.6-14.8); White Blood Cell Count 16.6 X10^3/uL (4.5-11.0)
[2023-08-24 10:03] VITALS: BP 132/67; PULSE 106; PULSE 108; RESP 18; O2SAT 95; O2SAT 98
[2023-08-24 10:03] LABS: Add Manual Diff / Slide Review YES
[2023-08-24 10:08] LABS: HEMOLYSIS < 15 (0-50); Monotest Positive (Negative)
[2023-08-24 10:13] LABS: Alanine Aminotransferase 78 IU/L (<50); Albumin 4.1 g/dL (3.5-5.0); Alkaline Phosphatase 149 U/L (38-126); Aspartate Aminotransferase 50 IU/L (17-59); BUN Creatinine Ratio 13.2 (6-22); Bilirubin Total 1.2 mg/dL (0.2-1.3); Blood Urea Nitrogen 9 mg/dL (9-20); Calcium 9.2 mg/dL (8.4-10.2); Carbon Dioxide 17 mmol/L (22-32); Chloride 98 mmol/L (98-107); Estimated Glomerular Filt Rate > 60 mL/min (>60); Globulin 4.3 g/dL (1.7-4.1); Glucose 166 mg/dL (70-100); Lipase 14 U/L (23-300); Magnesium 1.9 mg/dL (1.6-2.3); Sodium 129 mmol/L (137-145); Total Protein 8.4 g/dL (6.3-8.2)
[2023-08-24 10:14] LABS: Phosphorous 2.1 mg/dL (2.5-4.5)
[2023-08-24 10:15] VITALS: PULSE 101; O2SAT 96
[2023-08-24 10:21] LABS: Neutrophils Absolute Manual 7968 /uL (3000-5900); RBC Morphology Normal Morphology; Total Cells Counted 100
[2023-08-24 10:30] VITALS: BP 116/74; PULSE 96; O2SAT 95
[2023-08-24 10:34] LABS: Ketones (Beta-Hydroxybutyrate) 3.62 mmol/L (<0.27)
[2023-08-24 10:45] VITALS: PULSE 105; O2SAT 96
[2023-08-24 10:48] LABS: Influenza A - CEPHEID Flu A NEGATIVE (NEGATIVE); Influenza B - CEPHEID Flu B NEGATIVE (NEGATIVE); Respiratory Syncytial Virus Negative (Negative)
[2023-08-24 10:49] LABS: COVID-19 CEPHEID 4-PLEX PCR Negative (Negative)
== END 2023-08-24 11:03 | disposition home or self-care (01) ==
PROVIDERS: Emergency Provider Emergency Medicine; PCP Family Medicine
DX: B27.90 Infectious mononucleosis, unspecified without complication (principal); Z20.822 Contact with and (suspected) exposure to COVID-19
CPT/HCPCS: 0241U; 36415; 80053; 82009; 83690; 83735; 84100; 85007; 85025; 86318; 96361; 96374; 99284; J2405

== ENCOUNTER 2024-08-01 19:43 | Emergency (ER) | payer OTHER, SELFPAY ==
[2024-08-01 20:03] VITALS: BP 125/64; PULSE 80; RESP 16; TEMP 36.6; O2SAT 94; BMI 30.5
--- NOTE | 2024-08-01 20:40 | ED_ITS ---
HPI - General Adult General Chief complaint: Abdominal Pain Stated complaint: abd px Time Seen by Provider: 08/01/24 20:11 Source: patient Mode of arrival: Family Vehicle History of Present Illness HPI narrative: 28-year-old patient here for evaluation of upper abdominal pain that has been present for the past 24 hours. Patient states that the symptoms have been intermittent. Somewhat worse with palpation and movement. Some nausea but no vomiting. No change in bowel habits. No urinary changes. It was a type 1 diabetic. Has been in DKA in the past. Has a pancreatitis. No fevers. No travel. No antibiotics. Has had elevations in blood sugar over the past couple days despite the use of insulin. Related Data Home Medications Medication Instructions Recorded Confirmed spironolactone 100 mg tablet 100 mg PO BID 05/25/21 08/29/23 diclofenac sodium 1 % topical gel 2 g topical QID PRN 09/20/21 08/29/23 estradiol 2 mg tablet 2 mg PO BID 09/20/21 08/29/23 insulin aspart U-100 100 unit/mL 4 unit SUBCUT .COMPLEX 09/20/21 08/29/23 (3 mL) subcutaneous pen (Novolog FlexPen U-100 Insulin aspart) insulin glargine 100 unit/mL (3 30 unit SUBCUT BID 11/15/21 08/29/23 mL) subcutaneous pen (Lantus Solostar U-100 Insulin) famotidine 20 mg tablet (Acid 20 mg PO BID 09/25/22 08/29/23 Rotary Shear Cutter (famotidine)) spironolactone 50 mg tablet 50 mg PO BID 09/25/22 08/29/23 Previous Rx's Medication Instructions Recorded progesterone micronized 100 mg 100 mg PO BEDTIME #90 caps 08/11/20 capsule amoxicillin 875 mg-potassium 1 tab PO BID #14 tabs 12/06/22 clavulanate 125 mg tablet ondansetron 4 mg disintegrating 4 mg PO Q6H PRN nausea and 08/16/23 tablet vomiting #10 tabs ondansetron 4 mg disintegrating 4 mg PO Q8H PRN nausea and 08/18/23 tablet vomiting #20 tabs sertraline 100 mg tablet 150 mg (1.5 x 100 mg) PO BEDTIME 05/06/24 #135 tabs fluticasone propionate 50 See Rx Instructions .Route 06/11/24 mcg/actuation nasal .COMPLEX #16 grams spray,suspension bupropion HCl 150 mg 24 hr tablet, 150 mg PO QAM #90 tabs 06/22/24 extended release sildenafil 25 mg tablet (Viagra) 25 mg PO DAILY PRN sexual activity 06/22/24 #30 tabs risperidone 2 mg tablet 4 mg (2 x 2 mg) PO BEDTIME #180 06/24/24 tabs Allergies Allergy/AdvReac Type Severity Reaction Status Date / Time No Known Drug Allergies Allergy Verified 08/29/23 10:04 Review of Systems Review of Systems ROS Unobtainable: All systems reviewed & are unremarkable except as noted in HPI and below Patient History Medical History Gender dysphoria Depression with anxiety Type 1 diabetes (2010) Idiopathic pancreatitis (2013) Family History Grandfather Diabetes mellitus Cancer Social History marital status: unmarried,single number of children: 0 household members: family lives independently: No caregiver/support person: Yes housing: house education level: high school occupational status: unemployed Smoking Status: Never smoker second hand exposure: No alcohol intake: never substance use type: does not use Smoking Status: Never smoker alcohol intake frequency: a few times a month Exam Initial Vital Signs Initial Vital Signs: Vital Signs Temperature 97.9 F 08/01/24 20:03 Pulse Rate 80 08/01/24 20:03 Respiratory Rate 16 08/01/24 20:03 Blood Pressure 125/64 08/01/24 20:03 Pulse Oximetry 94 08/01/24 20:03 Oxygen Delivery Method Room Air 08/01/24 20:03 Const General: cooperative, comfortable and No ill appearing HENMT Head: normal to inspection Resp Effort & Inspection: normal respiratory effort Auscultation: clear to auscultation bilaterally Cardio Rate: regular rate Rhythm: regular rhythm GI Inspection: normal to inspection and non-distended Palpation: soft, No firm, No guarding and tender Skin General: no rashes or lesions noted Neuro General: patient alert, patient awake and moves all extremities Extrem General: capillary refill normal Course Orders Ordered: ED Orders 08/01/24 20:25 VBG [Venous Blood Gas] STAT 08/01/24 20:40 Complete Blood Count AUTO DIFF Stat Comprehensive Metabolic Panel Stat Ketones (Beta-Hydroxybutyrate) Stat Lactate (Lactic Acid) Stat Lipase Stat Magnesium Stat Phosphorous Stat Procalcitonin Stat 08/01/24 20:56 Venous Blood Gas Routine 08/01/24 21:22 CT abdomen pelvis w con Stat Discontinued Medications Ondansetron HCl (Ondansetron 4 Mg/2 Ml Inj) 4 mg IV NOW PRN PRN Reason: Nausea And Vomiting Last Admin: 08/01/24 21:48 Dose: 4 mg Documented By: PHU Ondansetron HCl (Ondansetron 4 Mg Odt) 4 mg PO NOW PRN PRN Reason: Nausea And Vomiting Ondansetron HCl (Ondansetron 4 Mg Odt Prepack) 1 bottle MISC DIRECTED ONE Stop: 08/01/24 22:49 Last Admin: 08/01/24 22:55 Dose: 1 bottle Documented By: PHU Vital Signs Vital signs: Vital Signs - 8 hr 08/01/24 20:03 08/01/24 21:45 08/01/24 22:00 Temperature 97.9 F Pulse Rate 80 73 72 Respiratory Rate 16 18 18 Blood Pressure 125/64 124/76 110/73 Pulse Oximetry 94 94 96 Oxygen Delivery Method Room Air 08/01/24 22:30 Temperature Pulse Rate 75 Respiratory Rate 18 Blood Pressure 117/77 Pulse Oximetry 96 Oxygen Delivery Method Medical Decision Making Lab Data Lab results reviewed: Yes I reviewed the patient's lab results. 08/01/24 20:40 08/01/24 20:40 Labs: Lab Results 08/01/24 08/01/24 Range/Units 20:40 20:56 WBC 9.9 (4.5-11.0) X10^3/uL RBC 5.07 (4.5-5.9) X10^6/uL Hgb 14.1 (13.5-17.5) g/dL Hct 40.8 L (41-53) % MCV 80.4 (80-100) fL MCH 27.8 (26-34) PG MCHC 34.6 (30-36) % RDW 13.3 (11.6-14.8) % Plt Count 226 (150-400) X10^3/uL Neut % (Auto) 62.3 (50-75) % Lymph % (Auto) 25.6 (25-40) % [place] % (Auto) 9.5 (3-14) % Eos % (Auto) 2.0 (2-4) % Baso % (Auto) 0.6 (0-2) % Neut # (Auto) 6200 (5780-0802) /uL Lymph # (Auto) 2500 (5884-3817) /uL [place] # (Auto) 900 (0-900) /uL Eos # (Auto) 200 (0-450) /uL Baso # (Auto) 100 (0-100) /uL VBG pH 7.57 H (7.33-7.43) VBG pCO2 18.6 L (45-50) mmHg VBG pO2 209 H (35-45) mmHg VBG HCO3 17 L (24-28) mmol/L VBG Total CO2 16 L (24-29) mmol/L VBG O2 Saturation 100 H (70-75) % VBG Base Excess -2.2 L (0-4) mmol/L Sodium 130 L (137-145) mmol/L Potassium 4.2 (3.4-5.1) mmol/L Chloride 100 (98-107) mmol/L Carbon Dioxide 22 (22-32) mmol/L BUN 10 (9-20) mg/dL Creatinine 0.77 (0.66-1.25) mg/dL Estimated GFR > 60 (>60) mL/min BUN/Creatinine Ratio 13.0 (6-22) Glucose 324 H (70-100) mg/dL Lactate 0.8 (0.7-2.1) mmol/L Calcium 9.2 (8.4-10.2) mg/dL Phosphorus 3.2 (2.5-4.5) mg/dL Magnesium 1.6 (1.6-2.3) mg/dL Total Bilirubin 0.5 (0.2-1.3) mg/dL AST 19 (17-59) IU/L ALT 11 (<50) IU/L Alkaline Phosphatase 65 (38-126) U/L Total Protein 7.2 (6.3-8.2) g/dL Albumin 4.3 (3.5-5.0) g/dL Globulin 2.9 (1.7-4.1) g/dL Albumin/Globulin Ratio 1.5 (1.0-2.8) Lipase 32 (23-300) U/L Procalcitonin 0.063 (<0.5) ng/mL Ketones 0.11 (<0.27) mmol/L Point of Care Testing Glucose POC 317 Urine Dip Bedside Urine Glucose 1000 mg/dl Bedside Urine Bilirubin - Negative Bedside Urine Ketone - Negative Urine Specific [place] 1.015 Bedside Urine Occult Blood - Negative Bedside Urine pH 6.0 Bedside Urine Protein - Negative Bedside Urine Urobilinogen - Negative Bedside Urine Nitrite - Negative Bedside Urine Leukocytes - Negative Esterase Point of care testing: Point of Care Testing Glucose POC 317 Urine Dip Bedside Urine Glucose 1000 mg/dl Bedside Urine Bilirubin - Negative Bedside Urine Ketone - Negative Urine Specific [place] 1.015 Bedside Urine Occult Blood - Negative Bedside Urine pH 6.0 Bedside Urine Protein - Negative Bedside Urine Urobilinogen - Negative Bedside Urine Nitrite - Negative Bedside Urine Leukocytes - Negative Esterase Imaging Data CT scan - abdomen/pelvis: Radiologist's Impression: PROCEDURE: CT ABDOMEN PELVIS W CON INDICATIONS: Generalized abdominal pain TECHNIQUE: After the administration of intravenous contrast, axial sections acquired from the lung bases to the pubic symphysis. Coronal and sagittal reformats were performed. For radiation dose reduction, the following was used: automated exposure control, adjustment of mA and/or kV according to patient size. COMPARISON: [facility], CT, CT ABDOMEN PELVIS W CON, 04/16/2023, 19:53. FINDINGS: Image quality: Diagnostic. Lower Chest: No significant findings. ABDOMEN: Liver: No solid mass. Gallbladder: No radiopaque gallstones or wall thickening. Biliary ducts: No biliary dilation. Pancreas: No ductal dilation. Spleen: Size is within normal limits. Adrenal Glands: No adrenal nodules. Kidneys and Ureters: No hydronephrosis. No solid mass. No complex renal cystic lesion which requires follow up. Stomach and Bowel: Normal colonic caliber, without significant wall thickening. Redemonstration of appendix with borderline distended caliber measuring 8-9 mm, unchanged since 04/16/2023. No periappendiceal fat stranding or other secondary signs of inflammation in the right lower quadrant. Peritoneum: No abnormal intraperitoneal fluid. No free air. Ventral Wall: No significant ventral hernia. Abdominal Nodes: No retroperitoneal or mesenteric adenopathy by size criteria. Vessels: Aorta and inferior vena cava are normal in size. PELVIS: Pelvic Organs: Unremarkable. Bladder: No bladder wall thickening, accounting for underdistention. Pelvic Nodes: No enlarged lymph nodes. Miscellaneous: No inguinal hernias are seen. Bones: No aggressive osseous abnormality. IMPRESSION: No acute abdominopelvic process. MDM Narrative Medical decision making narrative: Labs unremarkable. Low suspicion for pancreatitis. Tolerating oral intake. CT scan shows no acute pathology. Low suspicion for cholelithiasis, pancreatitis, no indication for surgical consultation. No indication to change any of medications for now. Patient not in DKA. Patient and mother were given return precautions. They expressed understanding and agreement with plan. Discharge Plan Departure Patient Disposition: Home Clinical Impression: Abdominal pain Instructions: DI for Abdominal Pain-Adult Activity Restrictions/Additional Instructions: Recommend that you continue to take all of your medications as directed. You can consider taking an [id number]-[id number] liquid antacid such as Maalox or Mylanta. Return to the emergency department for new or worsening symptoms. Prescriptions: No Action spironolactone 50 mg tablet 50 mg PO BID Rx Instructions: take 1 tablet twice daily with 100 mg tablet famotidine [Acid Rotary Shear Cutter (famotidine)] 20 mg tablet 20 mg PO BID amoxicillin-pot clavulanate 875-125 mg tablet 1 tab PO BID Qty: 14 0RF Lantus Solostar U-100 Insulin 100 unit/mL (3 mL) insulin pen 30 unit SUBCUT BID Patient Comments: ONLY IF PUMP NOT WORKING OR UNAVAILABLE ondansetron 4 mg tablet,disintegrating 4 mg PO Q6H PRN (Reason: nausea and vomiting) Qty: 10 0RF spironolactone 100 mg tablet 100 mg PO BID diclofenac sodium 1 % gel 2 g TOP QID PRN estradiol 2 mg tablet 2 mg PO BID progesterone micronized 100 mg capsule 100 mg PO BEDTIME Qty: 90 0RF sertraline 100 mg tablet 150 mg PO BEDTIME Qty: 135 1RF fluticasone propionate 50 mcg/actuation spray,suspension See Rx Instructions .ROUTE .COMPLEX Qty: 16 3RF Dose Instruction: ADMINISTER 2 SPRAYS INTRANASALLY TWICE A DAY Rx Instructions: ADMINISTER 2 SPRAYS INTRANASALLY TWICE A DAY bupropion HCl 150 mg tablet extended release 24 hr 150 mg PO QAM Qty: 90 3RF sildenafil [Viagra] 25 mg tablet 25 mg PO DAILY PRN (Reason: sexual activity) Qty: 30 0RF Rx Instructions: administer 30 minutes to 4 hours before activity risperidone 2 mg tablet 4 mg PO BEDTIME Qty: 180 3RF Novolog FlexPen U-100 Insulin 100 unit/mL (3 mL) insulin pen 4 unit SUBCUT .COMPLEX Patient Comments: ONLY USES IF PUMP NOT WORKING OR UNAVAILABLE Rx Instructions: take 7 units 5 times a day ondansetron 4 mg tablet,disintegrating 4 mg PO Q8H PRN (Reason: nausea and vomiting) Qty: 20 0RF Referrals: Arpita Gallardo MD [Primary Care Provider] - Stand Alone Forms: Patient Portal/API/Survey
[2024-08-01 20:59] LABS: Add Manual Diff / Slide Review NO; Basophils Absolute Auto 100 /uL (0-100); Basophils Percent Auto 0.6 % (0-2); Eosinophils Absolute Auto 200 /uL (0-450); Hematocrit 40.8 % (41-53); Hemoglobin 14.1 g/dL (13.5-17.5); Lymphocytes Absolute Auto 2500 /uL (1100-4500); Lymphocytes Percent Auto 25.6 % (25-40); Mean Corpuscular HGB Conc 34.6 % (30-36); Mean Corpuscular Hemoglobin 27.8 PG (26-34); Mean Corpuscular Volume 80.4 fL (80-100); Monocytes Absolute Auto 900 /uL (0-900); Monocytes Percent Auto 9.5 % (3-14); Neutrophils Absolute Auto 6200 /uL (1500-7000); Neutrophils Percent Auto 62.3 % (50-75); Platelet Count 226 X10^3/uL (150-400); Red Blood Cell Count 5.07 X10^6/uL (4.5-5.9); Red Cell Distribution Width 13.3 % (11.6-14.8); White Blood Cell Count 9.9 X10^3/uL (4.5-11.0)
[2024-08-01 21:01] LABS: Base Excess VBG -2.2 mmol/L (0-4); HCO3 VBG 17 mmol/L (24-28); Oxygen Saturation VBG 100 % (70-75); PCO2 VBG 18.6 mmHg (45-50); PO2 VBG 209 mmHg (35-45); Total CO2 VBG 16 mmol/L (24-29); pH VBG 7.57 (7.33-7.43)
[2024-08-01 21:14] LABS: Lactate (Lactic Acid) 0.8 mmol/L (0.7-2.1)
[2024-08-01 21:15] LABS: Alanine Aminotransferase 11 IU/L (<50); Albumin 4.3 g/dL (3.5-5.0); Albumin Globulin Ratio 1.5 (1.0-2.8); Alkaline Phosphatase 65 U/L (38-126); Aspartate Aminotransferase 19 IU/L (17-59); Bilirubin Total 0.5 mg/dL (0.2-1.3); Blood Urea Nitrogen 10 mg/dL (9-20); Calcium 9.2 mg/dL (8.4-10.2); Carbon Dioxide 22 mmol/L (22-32); Chloride 100 mmol/L (98-107); Estimated Glomerular Filt Rate > 60 mL/min (>60); Globulin 2.9 g/dL (1.7-4.1); Glucose 324 mg/dL (70-100); HEMOLYSIS 21 (0-50); Lipase 32 U/L (23-300); Magnesium 1.6 mg/dL (1.6-2.3); Potassium 4.2 mmol/L (3.4-5.1); Sodium 130 mmol/L (137-145); Total Protein 7.2 g/dL (6.3-8.2)
--- NOTE | 2024-08-01 21:22 | DI.CT.S_ITS ---
PROCEDURE: CT ABDOMEN PELVIS W CON INDICATIONS: Generalized abdominal pain TECHNIQUE: After the administration of intravenous contrast, axial sections acquired from the lung bases to the pubic symphysis. Coronal and sagittal reformats were performed. For radiation dose reduction, the following was used: automated exposure control, adjustment of mA and/or kV according to patient size. COMPARISON: [facility], CT, CT ABDOMEN PELVIS W CON, 04/16/2023, 19:53. FINDINGS: Image quality: Diagnostic. Lower Chest: No significant findings. ABDOMEN: Liver: No solid mass. Gallbladder: No radiopaque gallstones or wall thickening. Biliary ducts: No biliary dilation. Pancreas: No ductal dilation. Spleen: Size is within normal limits. Adrenal Glands: No adrenal nodules. Kidneys and Ureters: No hydronephrosis. No solid mass. No complex renal cystic lesion which requires follow up. Stomach and Bowel: Normal colonic caliber, without significant wall thickening. Redemonstration of appendix with borderline distended caliber measuring 8-9 mm, unchanged since 04/16/2023. No periappendiceal fat stranding or other secondary signs of inflammation in the right lower quadrant. Peritoneum: No abnormal intraperitoneal fluid. No free air. Ventral Wall: No significant ventral hernia. Abdominal Nodes: No retroperitoneal or mesenteric adenopathy by size criteria. Vessels: Aorta and inferior vena cava are normal in size. PELVIS: Pelvic Organs: Unremarkable. Bladder: No bladder wall thickening, accounting for underdistention. Pelvic Nodes: No enlarged lymph nodes. Miscellaneous: No inguinal hernias are seen. Bones: No aggressive osseous abnormality. IMPRESSION: No acute abdominopelvic process. Approved by: Juana Lux M.D.,Ph.D. on 08/01/2024 at 22:31
[2024-08-01 21:32] LABS: Procalcitonin 0.063 ng/mL (<0.5)
[2024-08-01 21:36] LABS: Phosphorous 3.2 mg/dL (2.5-4.5)
[2024-08-01 21:42] LABS: Ketones (Beta-Hydroxybutyrate) 0.11 mmol/L (<0.27)
[2024-08-01 21:45] VITALS: BP 124/76; PULSE 73; RESP 18; O2SAT 94
[2024-08-01] MEDS: ONDANSETRON 4 MG/2 ML INJ IV (21:48)
[2024-08-01 22:00] VITALS: BP 110/73; PULSE 72; RESP 18; O2SAT 96
--- NOTE | 2024-08-01 22:13 | RT ---
CURTIS Mitchell notified regarding VBG results at 2103.
[2024-08-01 22:30] VITALS: BP 117/77; PULSE 75; RESP 18; O2SAT 96
[2024-08-01] MEDS: ONDANSETRON 4 MG ODT PREPACK 1 BOTTLE MISC (22:55)
== END 2024-08-01 23:02 | disposition home or self-care (01) ==
PROVIDERS: Emergency Provider Emergency Medicine; PCP Family Medicine
DX: R10.84 Generalized abdominal pain (principal); R11.0 Nausea
CPT/HCPCS: 36415; 74177; 80053; 81003; 82009; 82805; 82962; 83605; 83690; 83735; 84100; 84145; 85025; 96374; 99284; J2405; Q9967

== ENCOUNTER → 2024-08-10 08:57 | Outpatient (CLI) | payer OTHER, SELFPAY ==
--- NOTE | 2024-08-10 08:59 | DI.US.S_ITS ---
PROCEDURE: US ABDOMEN LIMITED INDICATIONS: RIGHT UPPER QUADRANT PAIN TECHNIQUE: Real-time focused scanning was performed of the abdomen, with image documentation. COMPARISON: None. FINDINGS: The gallbladder is distended and contains innumerable shadowing calculi. The wall is normal thickness at 1.5 mm. No pericholecystic fluid or Miller sign. The common duct is not well seen. The proximal pancreas and visible portions of the liver appear normal. No visible fluid in the right upper quadrant. IMPRESSION: Cholelithiasis without sonographic evidence of acute cholecystitis. Cannot exclude choledocholithiasis. Dictated by: Milli Block M.D. on 08/10/2024 at 18:27 Approved by: Milli Block M.D. on 08/10/2024 at 18:28
== END ==
PROVIDERS: PCP Family Medicine; Referring Provider Family Medicine; Visit Provider Family Medicine
DX: K82.9 Disease of gallbladder, unspecified (principal); K80.20 Calculus of gallbladder without cholecystitis without obstruction
CPT/HCPCS: 76705

== ENCOUNTER → 2024-09-25 14:22 | Outpatient (CLI) | payer OTHER, SELFPAY ==
--- NOTE | 2024-09-25 14:24 | DI.MRI.S_ITS ---
PROCEDURE: MR ABDOMEN WO CON INDICATIONS: gallbladder pain, gall stones TECHNIQUE: Coronal HASTE through the abdomen, axial 2-D FLASH in- and [id number], and breath-hold T2 FSE with fat saturation through the biliary system and pancreas. Oblique coronal and axial thin-slice HASTE, radial thick-slab HASTE centered on the extrahepatic bile ducts. Intravenous secretin: Not requested. COMPARISON: [facility], MR, ABDOMEN WITHOUT CONTRAST, 06/17/2014, 9:42. FINDINGS: Image quality: Diagnostic. Gallbladder: Cholelithiasis without significant wall thickening. Biliary ducts: No biliary dilation. Pancreas: No ductal dilation. OTHER: Lung bases: Unremarkable. Liver: No solid mass. Spleen: Size is within normal limits. Adrenal Glands: No adrenal nodules. Kidneys and Ureters: No hydronephrosis. No solid mass. No complex renal cystic lesion which requires follow up. Stomach and Bowel: Normal colonic caliber, without significant wall thickening. Peritoneum: No abnormal intraperitoneal fluid. No free air. Ventral Wall: No hernia. Abdominal Nodes: No retroperitoneal or mesenteric adenopathy by size criteria. Vessels: Aorta and inferior vena cava are normal in size. Bones: No aggressive osseous abnormality. IMPRESSION: Cholelithiasis without evidence of acute cholecystitis or choledocholithiasis. Dictated by: Eric Valdes M.D. on 09/27/2024 at 9:15 Approved by: Eric Valdes M.D. on 09/27/2024 at 9:31
== END ==
PROVIDERS: PCP Family Medicine; Referring Provider Family Medicine; Visit Provider Family Medicine
DX: K80.20 Calculus of gallbladder without cholecystitis without obstruction (principal); R10.9 Unspecified abdominal pain
CPT/HCPCS: 74181

== ENCOUNTER 2025-01-20 00:09 | Emergency (ER) | payer OTHER, SELFPAY ==
[2025-01-20 00:19] VITALS: BP 140/84; PULSE 81; RESP 16; TEMP 36.9; O2SAT 96; BMI 30.5
--- NOTE | 2025-01-20 00:49 | ED.HA ---
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 Some nausea without emesis. No focal weakness to face arm or leg. No focal numbness to face arm or leg. No photophobia or neck discomfort. Was given naproxen 2 tablets earlier tonight by family, did not help. Tried gummy that also did not help. Persisting right-sided headache. Related Data Home Medications ?Medication ?Instructions ?Recorded ?Confirmed spironolactone 100 mg tablet 100 mg PO BID 05/25/21 01/20/25 estradiol 2 mg tablet 2 mg PO BID 09/20/21 01/20/25 famotidine 20 mg tablet (Acid 20 mg PO DAILY 09/25/22 01/20/25 Brick Cleaner (famotidine)) spironolactone 50 mg tablet 50 mg PO BID 09/25/22 01/20/25 blood-glucose sensor (Dexcom G7 01/20/25 01/20/25 Sensor device) cholecalciferol (vitamin D3) 50 50 mcg PO DAILY 01/20/25 01/20/25 mcg (2,000 unit) tablet (Vitamin D3) diphenhydramine HCl 25 mg capsule 25 mg PO DAILY 01/20/25 01/20/25 (Allergy Relief (diphenhydramine)) insulin lispro 200 unit/mL (3 mL) 1 sliding scale dose SUBCUT 5XD 01/20/25 01/20/25 subcutaneous pen (Humalog KwikPen U-200 Insulin) insulin pump cart,auto,BT,G6/7 01/20/25 01/20/25 (Omnipod 5 G6-G7 Pods (Gen 5) subcutaneous cartridge) Previous Rx's ?Medication ?Instructions ?Recorded bupropion HCl 150 mg 24 hr tablet, 150 mg PO QAM #90 tabs 06/22/24 extended release risperidone 1 mg tablet 1 mg PO QAM #90 tabs 09/07/24 fluticasone propionate 50 See Rx Instructions .Route 09/16/24 mcg/actuation nasal .COMPLEX #16 grams spray,suspension sertraline 100 mg tablet 150 mg (1.5 x 100 mg) PO BEDTIME 11/16/24 #135 tabs propranolol 10 mg tablet 10 mg PO BID #60 tabs 12/23/24 risperidone 2 mg tablet 3 mg (1.5 x 2 mg) PO BEDTIME #180 12/23/24 tabs Allergies Allergy/AdvReac Type Severity Reaction Status Date / Time No Known Drug Allergies Allergy Verified 01/20/25 00:19 Patient History Medical History (Updated 01/20/25 @ 03:28 by Chay Childs MD) Gender dysphoria Depression with anxiety Type 1 diabetes (2010) Idiopathic pancreatitis (2013) Family History Grandfather Diabetes mellitus Cancer Social History marital status: unmarried,single number of children: 0 household members: family lives independently: No caregiver/support person: Yes housing: house education level: high school occupational status: unemployed Smoking Status: Never smoker second hand exposure: No alcohol intake: never substance use type: does not use Smoking Status: Never smoker alcohol intake frequency: a few times a month Exam Narrative Exam Narrative: GENERAL: Well-developed patient, in mild distress. HEAD: Atraumatic. Normocephalic. EYES: Pupils equal round and reactive. Extraocular motions intact. No scleral icterus. No injection or drainage. ENT: Nose without bleeding, purulent drainage. Throat without erythema, tonsillar hypertrophy or exudate. Airway patent. NECK: Trachea midline. Non tender CARDIOVASCULAR: Regular rate and rhythm without murmurs, gallops, or rubs. RESPIRATORY: Clear to auscultation. Breath sounds equal bilaterally. No wheezes, rales, or rhonchi. GASTROINTESTINAL: Abdomen soft, non-tender, nondistended. EXTREMITIES: No edema or joint tenderness. BACK: Nontender without deformity or crepitance. No flank tenderness. NEURO: AOx3. Motor functions grossly nonfocal. SKIN: No rash or erythema of visible areas Initial Vital Signs Initial Vital Signs: Vital Signs Temperature 98.4 F 01/20/25 00:19 Pulse Rate 81 01/20/25 00:19 Respiratory Rate 16 01/20/25 00:19 Blood Pressure 140/84 01/20/25 00:19 Pulse Oximetry 96 01/20/25 00:19 Oxygen Delivery Method Room Air 01/20/25 00:19 Course Orders Ordered: ED Orders 01/20/25 01:35 CBC Auto Diff [Complete Blood Count AUTO DIFF] Stat CMP [Comprehensive Metabolic Panel] Stat Discontinued Medications Diphenhydramine HCl (Diphenhydramine 50 Mg/Ml Vial) 50 mg IV NOW ONE Stop: 01/20/25 01:00 Last Admin: 01/20/25 01:17 Dose: 50 mg Documented By: PHU Sodium Chloride (Normal Saline 0.9%) 1,000 mls @ 1,000 mls/hr IV BOLUS ONE Stop: 01/20/25 01:58 Last Infusion: 01/20/25 03:25 Dose: Infused Documented By: Admin: 01/20/25 01:17 Dose: 1,000 mls/hr Documented By: PHU Prochlorperazine (Prochlorperazine 10 Mg/2 Ml Vial) 5 mg IV NOW ONE Stop: 01/20/25 01:00 Last Admin: 01/20/25 01:21 Dose: 5 mg Documented By: PHU Vital Signs Vital signs: Vital Signs - 8 hr 01/20/25 00:19 01/20/25 03:43 Temperature 98.4 F Pulse Rate 81 80 Respiratory Rate 16 18 Blood Pressure 140/84 136/82 Pulse Oximetry 96 100 Oxygen Delivery Method Room Air Room Air MDM - Headache Lab Data Attestation: I reviewed the patient's lab results. Lab results narrative: White blood cell count 22676, hemoglobin 13.5, platelets adequate. Glucose 202. Serum CO2 20. Anion gap 10. Sodium 133 with potassium 4.4. BUN 10 with creatinine 0.82 normal renal function. Liver functions unremarkable. 01/20/25 01:35 01/20/25 01:35 Labs: Lab Results 01/20/25 Range/Units 01:35 WBC 11.2 H (4.5-11.0) X10^3/uL RBC 4.75 (4.5-5.9) X10^6/uL Hgb 13.5 (13.5-17.5) g/dL Hct 38.9 L (41-53) % MCV 81.8 (80-100) fL MCH 28.3 (26-34) PG MCHC 34.6 (30-36) % RDW 13.6 (11.6-14.8) % Plt Count 223 (150-400) X10^3/uL Neut % (Auto) 72.1 (50-75) % Lymph % (Auto) 20.8 L (25-40) % [place] % (Auto) 5.8 (3-14) % Eos % (Auto) 0.9 L (2-4) % Baso % (Auto) 0.4 (0-2) % Neut # (Auto) 8000 H (5660-0673) /uL Lymph # (Auto) 2300 (6061-3818) /uL [place] # (Auto) 600 (0-900) /uL Eos # (Auto) 100 (0-450) /uL Baso # (Auto) 0 (0-100) /uL Sodium 133 L (137-145) mmol/L Potassium 4.4 (3.4-5.1) mmol/L Chloride 103 (98-107) mmol/L Carbon Dioxide 20 L (22-32) mmol/L BUN 10 (9-20) mg/dL Creatinine 0.82 (0.66-1.25) mg/dL Estimated GFR > 60 (>60) mL/min BUN/Creatinine Ratio 12.2 (6-22) Glucose 202 H (70-99) mg/dL Calcium 9.6 (8.4-10.2) mg/dL Total Bilirubin 0.7 (0.2-1.3) mg/dL AST 25 (17-59) IU/L ALT 13 (<50) IU/L Alkaline Phosphatase 72 (38-126) U/L Total Protein 7.3 (6.3-8.2) g/dL Albumin 4.2 (3.5-5.0) g/dL Globulin 3.1 (1.7-4.1) g/dL Albumin/Globulin Ratio 1.4 (1.0-2.8) MDM Narrative Medical decision making narrative: 29-year-old male, goes by she/Minnie, history of diabetes on insulin pump, has nontraumatic right forehead headache this evening, no focal weakness or numbness, afebrile, moves neck well. No photophobia. Nonfocal gross neurological exam. Given ondansetron, nausea improved but still has right frontal headache. Recent oral NSAID doses, will avoid Toradol for now. Will send labs given history of diabetes. IV fluid bolus, IV Compazine/Benadryl. Discussed advanced imaging CT head, hold for now. Lab data: White blood cell count 88088, hemoglobin 13.5, platelets adequate. Glucose 202. Serum CO2 20. Anion gap 10. Sodium 133 with potassium 4.4. BUN 10 with creatinine 0.82 normal renal function. Liver functions unremarkable. 0330, headache symptoms improved. Able to ambulate, take oral fluids. Discharged home with mother. Return precautions discussed. Discharge Plan Departure Patient Disposition: Home Clinical Impression: Headache Activity Restrictions/Additional Instructions: Right frontal headache without trauma known, history of diabetes, reasonable sugar level on lab testing. IV Compazine/diphenhydramine given, headache symptoms seemed to improve then resolved. Consider use of [id number] Tylenol and or Motrin as needed for recurrent headaches if they should occur. Continue taking your insulin pump diabetic medication regimen. Continue chronic regular medications as prescribed. Recheck with your regular doctor later this week. Return to this/nearest emergency department for any change worsening symptoms or any concerns prior. Prescriptions: No Action spironolactone 50 mg tablet 50 mg PO BID Rx Instructions: take 1 tablet twice daily with 100 mg tablet famotidine [Acid Brick Cleaner (famotidine)] 20 mg tablet 20 mg PO DAILY spironolactone 100 mg tablet 100 mg PO BID estradiol 2 mg tablet 2 mg PO BID Rx Instructions: Take 3 tablets (6mg) in morning and 2 tablets (4mg) at bedtime risperidone 1 mg tablet 1 mg PO QAM Qty: 90 3RF sertraline 100 mg tablet 150 mg PO BEDTIME Qty: 135 3RF propranolol 10 mg tablet 10 mg PO BID Qty: 60 3RF risperidone 2 mg tablet 3 mg PO BEDTIME Qty: 180 3RF bupropion HCl 150 mg tablet extended release 24 hr 150 mg PO QAM Qty: 90 3RF fluticasone propionate 50 mcg/actuation spray,suspension See Rx Instructions .ROUTE .COMPLEX Qty: 16 3RF Dose Instruction: ADMINISTER 2 SPRAYS INTRANASALLY TWICE A DAY Rx Instructions: ADMINISTER 2 SPRAYS INTRANASALLY TWICE A DAY (DME) Dexcom G7 Sensor Device MISCELLANEOUS Patient Comments: [NO ORIGINAL SIG] Humalog KwikPen Insulin 200 unit/mL (3 mL) insulin pen 1 sliding scale dose SUBCUT 5XD Patient Comments: [NO ORIGINAL SIG] (DME) Omnipod 5 G6-G7 Pods (Gen 5) Cartridge SUBCUT Patient Comments: [NO ORIGINAL SIG] diphenhydramine HCl [Allergy Relief(diphenhydramin)] 25 mg capsule 25 mg PO DAILY cholecalciferol (vitamin D3) [Vitamin D3] 50 mcg (2,000 unit) tablet 50 mcg PO DAILY Referrals: Arpita Gallardo MD [Primary Care Provider, Family Practice] Stand Alone Forms: Patient Portal/API
[2025-01-20] MEDS: diphenhydrAMINE 50 MG/ML VIAL IV (01:17)
[2025-01-20] MEDS: SODIUM CHLORIDE 0.9% 1,000 ML 1000 ML IV (01:17)
[2025-01-20] MEDS: PROCHLORPERAZINE 10 MG/2 ML VIAL 5 MG IV (01:21)
[2025-01-20 01:49] LABS: Add Manual Diff / Slide Review NO; Hematocrit 38.9 % (41-53); Hemoglobin 13.5 g/dL (13.5-17.5); Lymphocytes Absolute Auto 2300 /uL (1100-4500); Mean Corpuscular HGB Conc 34.6 % (30-36); Mean Corpuscular Hemoglobin 28.3 PG (26-34); Mean Corpuscular Volume 81.8 fL (80-100); Platelet Count 223 X10^3/uL (150-400)
[2025-01-20 02:12] LABS: Alanine Aminotransferase 13 IU/L (<50); Albumin 4.2 g/dL (3.5-5.0); Albumin Globulin Ratio 1.4 (1.0-2.8); Alkaline Phosphatase 72 U/L (38-126); Blood Urea Nitrogen 10 mg/dL (9-20); Calcium 9.6 mg/dL (8.4-10.2); Carbon Dioxide 20 mmol/L (22-32); Chloride 103 mmol/L (98-107); Estimated Glomerular Filt Rate > 60 mL/min (>60); Globulin 3.1 g/dL (1.7-4.1); Glucose 202 mg/dL (70-99); HEMOLYSIS 47 (0-50); Potassium 4.4 mmol/L (3.4-5.1); Sodium 133 mmol/L (137-145); Total Protein 7.3 g/dL (6.3-8.2)
[2025-01-20 03:43] VITALS: BP 136/82; PULSE 80; RESP 18; O2SAT 100
== END 2025-01-20 03:44 | disposition home or self-care (01) ==
PROVIDERS: Emergency Provider Emergency Medicine; PCP Family Medicine
DX: R51.9 Headache, unspecified (principal); R11.0 Nausea
CPT/HCPCS: 36415; 80053; 85025; 96361; 96374; 96375; 99284; J0780; J1200

== ENCOUNTER 2025-02-02 21:27 | Emergency (ER) | payer OTHER, SELFPAY ==
[2025-02-02 21:37] VITALS: BP 120/81; PULSE 86; RESP 16; TEMP 37.3; O2SAT 95
[2025-02-03] VITALS (9 sets, daily range): BP systolic 95–141; BP diastolic 66–83; PULSE 61–79; O2SAT 93–98
--- NOTE | 2025-02-03 00:16 | PC.NURSE ---
Pt seen recently for similar issue. The time has been over 24 hours. Attempted treatment 02/01/25 with 1-naproxen, and 1 gummy 5 mg THC. Second 02/02/25 @ 1999 had 1 gummy 5 mg THC. Gave family some education on OTC migraine medications. Also, advised that they need to follow up per the last discharge instructions with the PCP if this issue persists. Ganga is currently with pt at this time.
--- NOTE | 2025-02-03 00:58 | DI.CT.S_ITS ---
PROCEDURE: CT HEAD/BRAIN WO CON INDICATIONS: Rt restorationism headache, nontraumatic, family hx Brain aneurysms TECHNIQUE: Noncontrast 4.5 mm thick angled axial sections acquired from the foramen magnum to the vertex, with coronal and sagittal reformats. For radiation dose reduction, the following was used: automated exposure control, adjustment of mA and/or kV according to patient size. COMPARISON: None. FINDINGS: Image quality: Diagnostic. CSF spaces: Basal cisterns are patent. No extra-axial fluid collections. Ventricles are normal in size and shape. Brain: No midline shift. No intracranial mass effect or hemorrhage. Pro- white matter interface is normal. Skull and face: Calvarium and visualized facial bones are intact, without suspicious lesions. Sinuses: Visualized sinuses and mastoids are clear. IMPRESSION: No acute intracranial pathology. Dictated by: Marleny Hopkins M.D. on 02/03/2025 at 1:25 Approved by: Marleny Hopkins M.D. on 02/03/2025 at 1:25
[2025-02-03] MEDS: SODIUM CHLORIDE 0.9% 1,000 ML 1000 ML IV (01:34)
[2025-02-03] MEDS: ONDANSETRON 4 MG/2 ML INJ IV (01:37)
[2025-02-03] MEDS: KETOROLAC 30 MG/ML VIAL IV (01:39)
[2025-02-03] MEDS: diphenhydrAMINE 50 MG/ML VIAL IV (01:41)
[2025-02-03 02:05] LABS: Add Manual Diff / Slide Review NO; Hematocrit 40.0 % (41-53); Hemoglobin 13.8 g/dL (13.5-17.5); Lymphocytes Absolute Auto 2600 /uL (1100-4500); Mean Corpuscular HGB Conc 34.5 % (30-36); Mean Corpuscular Hemoglobin 28.0 PG (26-34); Mean Corpuscular Volume 81.1 fL (80-100); Platelet Count 226 X10^3/uL (150-400)
[2025-02-03 02:17] LABS: INR 1.0 (0.9-1.3); Prothrombin Time 11.7 SECONDS (9.4-12.5)
[2025-02-03 02:19] LABS: PTT Partial Thromboplastin Tim 30 SECONDS (25.1-36.5)
[2025-02-03 02:23] LABS: Alanine Aminotransferase 11 IU/L (<50); Albumin 4.5 g/dL (3.5-5.0); Albumin Globulin Ratio 1.5 (1.0-2.8); Alkaline Phosphatase 62 U/L (38-126); Blood Urea Nitrogen 8 mg/dL (9-20); Calcium 9.8 mg/dL (8.4-10.2); Carbon Dioxide 24 mmol/L (22-32); Chloride 101 mmol/L (98-107); Estimated Glomerular Filt Rate > 60 mL/min (>60); Globulin 3.1 g/dL (1.7-4.1); Glucose 142 mg/dL (70-99); HEMOLYSIS 18 (0-50); Magnesium 1.7 mg/dL (1.6-2.3); Potassium 4.0 mmol/L (3.4-5.1); Sodium 136 mmol/L (137-145); Total Protein 7.6 g/dL (6.3-8.2)
[2025-02-03] MEDS: ACETAMINOPHEN IV 1,000 MG/100 ML VIAL 400 MG IV (02:45)
[2025-02-03 03:20] LABS: Thyroid Stimulating Hormone 1.34 uIU/mL (0.47-4.68)
--- NOTE | 2025-02-03 05:17 | ED.HA ---
HPI - Headache General Chief Complaint: Headache Stated Complaint: migraine t-1 Time Seen by Provider: 02/03/25 00:17 Mode of arrival: Ambulatory History of Present Illness HPI Narrative: Pleasant 29-year-old with a history of type 1 diabetes comes to the ER with a headache accompanied by some nausea. He denies any changes in vision, hearing, speech, swallowing or any new onset of numbness tingling or weakness of any part of the body. He denies any fever, chills, sweats recently. He was seen in our ER earlier this month for similar symptoms and treated with migraine cocktail which improved his symptoms and he was discharged. Today, however he does have the worst headache he has ever had before. His grandmother also informs me that his family has a history of brain aneurysms. There are no other concerns or complaints at this time. Related Data Home Medications ?Medication ?Instructions ?Recorded ?Confirmed spironolactone 100 mg tablet 100 mg PO BID 05/25/21 01/20/25 estradiol 2 mg tablet 2 mg PO BID 09/20/21 01/20/25 famotidine 20 mg tablet (Acid 20 mg PO DAILY 09/25/22 01/20/25 Recreational Programs Director (famotidine)) spironolactone 50 mg tablet 50 mg PO BID 09/25/22 01/20/25 blood-glucose sensor (Dexcom G7 01/20/25 01/20/25 Sensor device) cholecalciferol (vitamin D3) 50 50 mcg PO DAILY 01/20/25 01/20/25 mcg (2,000 unit) tablet (Vitamin D3) diphenhydramine HCl 25 mg capsule 25 mg PO DAILY 01/20/25 01/20/25 (Allergy Relief (diphenhydramine)) insulin lispro 200 unit/mL (3 mL) 1 sliding scale dose SUBCUT 5XD 01/20/25 01/20/25 subcutaneous pen (Humalog KwikPen U-200 Insulin) insulin pump cart,auto,BT,G6/7 01/20/25 01/20/25 (Omnipod 5 G6-G7 Pods (Gen 5) subcutaneous cartridge) Previous Rx's ?Medication ?Instructions ?Recorded bupropion HCl 150 mg 24 hr tablet, 150 mg PO QAM #90 tabs 06/22/24 extended release risperidone 1 mg tablet 1 mg PO QAM #90 tabs 09/07/24 sertraline 100 mg tablet 150 mg (1.5 x 100 mg) PO BEDTIME 11/16/24 #135 tabs propranolol 10 mg tablet 10 mg PO BID #60 tabs 12/23/24 risperidone 2 mg tablet 3 mg (1.5 x 2 mg) PO BEDTIME #180 12/23/24 tabs fluticasone propionate 50 See Rx Instructions .Route 01/24/25 mcg/actuation nasal .COMPLEX #16 grams spray,suspension Allergies Allergy/AdvReac Type Severity Reaction Status Date / Time No Known Drug Allergies Allergy Verified 02/02/25 21:37 Patient History Medical History (Updated 02/03/25 @ 03:33 by Adithya Saucedo MD) Gender dysphoria Depression with anxiety Type 1 diabetes (2010) Idiopathic pancreatitis (2013) Family History Grandfather Diabetes mellitus Cancer Social History marital status: unmarried,single number of children: 0 household members: family lives independently: No caregiver/support person: Yes housing: house education level: high school occupational status: unemployed Smoking Status: Never smoker second hand exposure: No alcohol intake: never substance use type: does not use Smoking Status: Never smoker alcohol intake frequency: a few times a month Exam Initial Vital Signs Initial Vital Signs: Vital Signs Temperature 99.1 F 02/02/25 21:37 Pulse Rate 86 02/02/25 21:37 Respiratory Rate 16 02/02/25 21:37 Blood Pressure 120/81 02/02/25 21:37 Pulse Oximetry 95 02/02/25 21:37 Oxygen Delivery Method Room Air 02/02/25 21:37 Const General: No comfortable, acute distress, No diaphoretic and No ill appearing HENMT Head: normal to inspection, normocephalic and atraumatic Face and sinus: normal facial exam Eyes General: Yes appearance normal, both eyes and all related structures Pupils: PERRL EOM: EOM intact bilaterally Neck Neck: normal visual inspection, no meningeal signs, No positive Brudzinski's sign, No positive Kernig's sign and No tender Resp Effort & Inspection: normal respiratory effort Auscultation: clear to auscultation bilaterally Cardio Rate: regular rate Rhythm: regular rhythm Heart Sounds: S1 normal and S2 normal GI Inspection: normal to inspection Palpation: soft and No tender Auscultation: normal bowel sounds General: No CVA tenderness Back/Spine/Pelvis Back: No CVA tenderness Neuro General: patient alert, patient awake, patient oriented x3, tone normal, moves all extremities, normal light touch, pain and propioception, no meningeal signs, no focal motor deficits and CN's II-XI intact bilaterally Cognition: normal cognition Speech: speech normal Gait: normal gait Course Course Course Narrative: Patient seen and examined by myself once she was roomed in the ER. I did order a CT today since this was the worst headache of ther life. The CT was negative. sHe was treated with the usual migraine cocktail of Toradol, IV fluids, diphenhydramine, Zofran. This did significantly improve but not resolve te symptoms. I then offered him additional pain management and he accepted and I gave hthem a dose of IV Tylenol and the pain nearly resolved from that. I advised him to return to the ER for any change or worsening in his condition especially a new type of headache, worst headache of his life, or a headache accompanied by any neurological symptoms as outlined in the discharge instructions. The patient and their grandmother were in agreement with this plan. Orders Ordered: ED Orders 02/03/25 00:58 CT head/brain wo con Stat 02/03/25 01:44 CBC Auto Diff [Complete Blood Count AUTO DIFF] Stat CMP [Comprehensive Metabolic Panel] Stat MAG [Magnesium] Stat PTT Partial Thromboplastin [place] Stat Prothrombin Time INR Stat TSH [Thyroid Stimulating Hormone] Stat Discontinued Medications Diphenhydramine HCl (Diphenhydramine 50 Mg/Ml Vial) 50 mg IV NOW ONE Stop: 02/03/25 00:59 Last Admin: 02/03/25 01:41 Dose: 50 mg Documented By: Sodium Chloride (Normal Saline 0.9%) 1,000 mls @ 1,000 mls/hr IV BOLUS ONE Stop: 02/03/25 01:57 Last Infusion: 02/03/25 02:59 Dose: Infused Documented By: Admin: 02/03/25 01:34 Dose: 1,000 mls/hr Documented By: AB Acetaminophen (Ofirmev) 1,000 mg in 100 mls @ 400 mls/hr IV NOW ONE Stop: 02/03/25 02:46 Last Infusion: 02/03/25 02:58 Dose: Infused Documented By: Admin: 02/03/25 02:45 Dose: 400 mls/hr Documented By: EDMOND Ketorolac Tromethamine (Ketorolac 30 Mg/Ml Vial) 30 mg IV NOW ONE Stop: 02/03/25 00:59 Last Admin: 02/03/25 01:39 Dose: 30 mg Documented By: Ondansetron HCl (Ondansetron 4 Mg/2 Ml Inj) 4 mg IV NOW ONE Stop: 02/03/25 00:59 Last Admin: 02/03/25 01:37 Dose: 4 mg Documented By: Vital Signs Vital signs: Vital Signs - 8 hr 02/02/25 21:37 02/03/25 00:07 02/03/25 00:30 Temperature 99.1 F Pulse Rate 86 61 78 Respiratory Rate 16 Blood Pressure 120/81 Pulse Oximetry 95 98 96 Oxygen Delivery Method Room Air Room Air 02/03/25 00:31 02/03/25 00:31 02/03/25 01:00 Temperature Pulse Rate 78 Respiratory Rate Blood Pressure 141/74 H 119/83 Pulse Oximetry 97 Oxygen Delivery Method 02/03/25 01:00 02/03/25 01:30 02/03/25 01:30 Temperature Pulse Rate 73 79 Respiratory Rate Blood Pressure 119/81 Pulse Oximetry 93 95 Oxygen Delivery Method Room Air 02/03/25 02:00 02/03/25 02:00 02/03/25 02:30 Temperature Pulse Rate 71 Respiratory Rate Blood Pressure 110/73 111/69 Pulse Oximetry 95 Oxygen Delivery Method 02/03/25 02:30 02/03/25 03:00 02/03/25 03:00 Temperature Pulse Rate 68 71 Respiratory Rate Blood Pressure 106/70 Pulse Oximetry 95 96 Oxygen Delivery Method 02/03/25 03:30 02/03/25 03:30 Temperature Pulse Rate 73 Respiratory Rate Blood Pressure 95/66 Pulse Oximetry 94 Oxygen Delivery Method Room Air MDM - Headache Differential Diagnosis Differential diagnosis: Likely migraine, tension headache, subarachnoid hemorrhage, headache, postconcussion syndrome and other (aneurysm) Lab Data 02/03/25 01:44 02/03/25 01:44 Labs: Lab Results 07/17/25 Range/Units 01:44 WBC 12.1 H (4.5-11.0) X10^3/uL RBC 4.93 (4.5-5.9) X10^6/uL Hgb 13.8 (13.5-17.5) g/dL Hct 40.0 L (41-53) % MCV 81.1 (80-100) fL MCH 28.0 (26-34) PG MCHC 34.5 (30-36) % RDW 13.2 (11.6-14.8) % Plt Count 226 (150-400) X10^3/uL Neut % (Auto) 67.2 (50-75) % Lymph % (Auto) 21.6 L (25-40) % [place] % (Auto) 10.3 (3-14) % Eos % (Auto) 0.6 L (2-4) % Baso % (Auto) 0.3 (0-2) % Neut # (Auto) 8100 H (8626-8514) /uL Lymph # (Auto) 2600 (3102-1555) /uL [place] # (Auto) 1200 H (0-900) /uL Eos # (Auto) 100 (0-450) /uL Baso # (Auto) 0 (0-100) /uL PT 11.7 (9.4-12.5) SECONDS INR 1.0 (0.9-1.3) APTT 30 (25.1-36.5) SECONDS Sodium 136 L (137-145) mmol/L Potassium 4.0 (3.4-5.1) mmol/L Chloride 101 (98-107) mmol/L Carbon Dioxide 24 (22-32) mmol/L BUN 8 L (9-20) mg/dL Creatinine 0.78 (0.66-1.25) mg/dL Estimated GFR > 60 (>60) mL/min BUN/Creatinine Ratio 10.3 (6-22) Glucose 142 H (70-99) mg/dL Calcium 9.8 (8.4-10.2) mg/dL Magnesium 1.7 (1.6-2.3) mg/dL Total Bilirubin 0.6 (0.2-1.3) mg/dL AST 19 (17-59) IU/L ALT 11 (<50) IU/L Alkaline Phosphatase 62 (38-126) U/L Total Protein 7.6 (6.3-8.2) g/dL Albumin 4.5 (3.5-5.0) g/dL Globulin 3.1 (1.7-4.1) g/dL Albumin/Globulin Ratio 1.5 (1.0-2.8) TSH 1.34 (0.47-4.68) uIU/mL Discharge Plan Departure Patient Disposition: Home Clinical Impression: Headache Qualifiers: Headache type: unspecified Headache chronicity pattern: acute headache Intractability: not intractable Qualified Code(s): R51.9 - Headache, unspecified Instructions: DI for Migraine Activity Restrictions/Additional Instructions: If there is any change or worsening in your condition, especially if you get a headache that is accompanied by new symptoms or if it is the worst headache of your life and please return to the ER right away for further evaluation. Otherwise, please follow up with your primary care provider as soon as possible. Prescriptions: No Action spironolactone 50 mg tablet 50 mg PO BID Rx Instructions: take 1 tablet twice daily with 100 mg tablet famotidine [Acid Recreational Programs Director (famotidine)] 20 mg tablet 20 mg PO DAILY spironolactone 100 mg tablet 100 mg PO BID estradiol 2 mg tablet 2 mg PO BID Rx Instructions: Take 3 tablets (6mg) in morning and 2 tablets (4mg) at bedtime risperidone 1 mg tablet 1 mg PO QAM Qty: 90 3RF sertraline 100 mg tablet 150 mg PO BEDTIME Qty: 135 3RF propranolol 10 mg tablet 10 mg PO BID Qty: 60 3RF risperidone 2 mg tablet 3 mg PO BEDTIME Qty: 180 3RF bupropion HCl 150 mg tablet extended release 24 hr 150 mg PO QAM Qty: 90 3RF fluticasone propionate 50 mcg/actuation spray,suspension See Rx Instructions .ROUTE .COMPLEX Qty: 16 3RF Dose Instruction: ADMINISTER 2 SPRAYS INTRANASALLY TWICE A DAY Rx Instructions: ADMINISTER 2 SPRAYS INTRANASALLY TWICE A DAY (DME) Dexcom G7 Sensor Device MISCELLANEOUS Patient Comments: [NO ORIGINAL SIG] Humalog KwikPen Insulin 200 unit/mL (3 mL) insulin pen 1 sliding scale dose SUBCUT 5XD Patient Comments: [NO ORIGINAL SIG] (DME) Omnipod 5 G6-G7 Pods (Gen 5) Cartridge SUBCUT Patient Comments: [NO ORIGINAL SIG] diphenhydramine HCl [Allergy Relief(diphenhydramin)] 25 mg capsule 25 mg PO DAILY cholecalciferol (vitamin D3) [Vitamin D3] 50 mcg (2,000 unit) tablet 50 mcg PO DAILY Referrals: Arpita Gallardo MD [Primary Care Provider, Family Practice] - As soon as possible Stand Alone Forms: Patient Portal/API
== END 2025-02-03 03:53 | disposition home or self-care (01) ==
PROVIDERS: Emergency Provider Emergency Medicine; PCP Family Medicine
DX: R51.9 Headache, unspecified (principal)
CPT/HCPCS: 36415; 70450; 80053; 83735; 84443; 85025; 85610; 85730; 96361; 96374; 96375; 99284; J0131; J1200; J1885; J2405

== ENCOUNTER 2025-02-04 18:11 | Emergency (ER) | payer OTHER, SELFPAY ==
[2025-02-04] VITALS (8 sets, daily range): BP systolic 118–155; BP diastolic 72–86; PULSE 63–87; RESP 16–17; TEMP 36.9; O2SAT 93–98; BMI 29.8
--- NOTE | 2025-02-04 21:33 | ED.HA ---
HPI - Headache General Chief Complaint: Headache Stated Complaint: severe migraine Time Seen by Provider: 02/04/25 19:10 History of Present Illness HPI Narrative: 29-year-old yesterday for migraine attack presents with another episode today despite negative head CT and lab work. Patient states that caffeine could be a trigger for the reason why she is having headaches in the right top of the head along with nausea and light sensitivity. This is the 3rd attack in a month. Patient denies fever, chills, stiff neck, rash, sick contacts, cough, sore throat, earache, vomiting, diarrhea. Other than what is stated 14 point review of system is negative. Related Data Home Medications ?Medication ?Instructions ?Recorded ?Confirmed spironolactone 100 mg tablet 100 mg PO BID 05/25/21 01/20/25 estradiol 2 mg tablet 2 mg PO BID 09/20/21 01/20/25 famotidine 20 mg tablet (Acid 20 mg PO DAILY 09/25/22 01/20/25 Information Technology Security Analyst (famotidine)) spironolactone 50 mg tablet 50 mg PO BID 09/25/22 01/20/25 blood-glucose sensor (Dexcom G7 01/20/25 01/20/25 Sensor device) cholecalciferol (vitamin D3) 50 50 mcg PO DAILY 01/20/25 01/20/25 mcg (2,000 unit) tablet (Vitamin D3) diphenhydramine HCl 25 mg capsule 25 mg PO DAILY 01/20/25 01/20/25 (Allergy Relief (diphenhydramine)) insulin lispro 200 unit/mL (3 mL) 1 sliding scale dose SUBCUT 5XD 01/20/25 01/20/25 subcutaneous pen (Humalog KwikPen U-200 Insulin) insulin pump cart,auto,BT,G6/7 01/20/25 01/20/25 (Omnipod 5 G6-G7 Pods (Gen 5) subcutaneous cartridge) Previous Rx's ?Medication ?Instructions ?Recorded bupropion HCl 150 mg 24 hr tablet, 150 mg PO QAM #90 tabs 06/22/24 extended release risperidone 1 mg tablet 1 mg PO QAM #90 tabs 09/07/24 sertraline 100 mg tablet 150 mg (1.5 x 100 mg) PO BEDTIME 11/16/24 #135 tabs propranolol 10 mg tablet 10 mg PO BID #60 tabs 06/05/25 risperidone 2 mg tablet 3 mg (1.5 x 2 mg) PO BEDTIME #180 12/23/24 tabs fluticasone propionate 50 See Rx Instructions .Route 01/24/25 mcg/actuation nasal .COMPLEX #16 grams spray,suspension tfddqyijju-zbumehbulpkgi-eamlmdqu 1 cap PO Q4-6H PRN pain #30 caps 02/04/25 50 mg-300 mg-40 mg capsule (Fioricet) Allergies Allergy/AdvReac Type Severity Reaction Status Date / Time No Known Drug Allergies Allergy Verified 02/04/25 18:27 Review of Systems Review of Systems ROS Unobtainable: All systems reviewed & are unremarkable except as noted in HPI and below Patient History Medical History (Updated 02/04/25 @ 22:37 by Onesimo Parks DO) Gender dysphoria Depression with anxiety Type 1 diabetes (2010) Idiopathic pancreatitis (2013) Family History Grandfather Diabetes mellitus Cancer Social History marital status: unmarried,single number of children: 0 household members: family lives independently: No caregiver/support person: Yes housing: house education level: high school occupational status: unemployed second hand exposure: No alcohol intake: never substance use type: does not use alcohol intake frequency: a few times a month Exam Narrative Exam Narrative: GENERAL: [29] year old patient appears stated age. Well-developed patient, in mild distress. HEAD: Atraumatic. Normocephalic. EYES: Pupils equal round and reactive. Extraocular motions intact. No scleral icterus. No injection or drainage. ENT: Nose without bleeding, purulent drainage. Throat without erythema, tonsillar hypertrophy or exudate. Airway patent. NECK: Trachea midline. Non tender CARDIOVASCULAR: Regular rate and rhythm without murmurs, gallops, or rubs. RESPIRATORY: Clear to auscultation. Breath sounds equal bilaterally. No wheezes, rales, or rhonchi. GASTROINTESTINAL: Abdomen soft, non-tender, nondistended. EXTREMITIES: No edema or joint tenderness. BACK: Nontender without deformity or crepitance. No flank tenderness. NEURO: AOx3. SKIN: No rash or erythema of visible areas Initial Vital Signs Initial Vital Signs: Vital Signs Pulse Rate 84 02/04/25 18:20 Respiratory Rate 16 02/04/25 18:20 Blood Pressure 155/73 H 02/04/25 18:20 Pulse Oximetry 97 02/04/25 18:20 Oxygen Delivery Method Room Air 02/04/25 18:20 Course Orders Ordered: Lactated Ringer's (Lactated Ringers) 1,000 mls @ 1,000 mls/hr IV BOLUS ONE Stop: 02/04/25 22:29 Discontinued Medications Diphenhydramine HCl (Diphenhydramine 50 Mg/Ml Vial) 50 mg IV NOW ONE Stop: 02/04/25 21:31 Droperidol (Droperidol 2.5 Mg/Ml Vial) 2.5 mg IV NOW ONE Stop: 02/04/25 21:31 Ketorolac Tromethamine (Ketorolac 30 Mg/Ml Vial) 30 mg IV NOW ONE Stop: 02/04/25 21:31 Vital Signs Vital signs: Vital Signs - 8 hr 02/04/25 18:20 02/04/25 20:05 02/04/25 20:05 Pulse Rate 84 84 Respiratory Rate 16 Blood Pressure 155/73 H 140/86 Pulse Oximetry 97 98 Oxygen Delivery Method Room Air 02/04/25 20:30 02/04/25 20:30 Pulse Rate 63 Respiratory Rate Blood Pressure 130/81 Pulse Oximetry 98 Oxygen Delivery Method MDM - Headache Lab Data Labs: Lab Results 02/04/25 Range/Units 21:12 POC Whole Bld Glucose 149 H (70-99) mg/dL MDM Narrative Medical decision making narrative: Vital signs, nurse triage note, medication list, previous ER visits, and all imaging studies reviewed. Lab work and CT scan from yesterday's visit all reviewed patient given lactated ringer Toradol Benadryl and droperidol here. Discharged on Fioricet prescription. Differential diagnosis viral, dehydration, migraine. Will have patient follow up with PCP in 1-2 weeks if no improvement in symptoms. Discharge Plan Departure Patient Disposition: Home Clinical Impression: Migraine Qualifiers: Migraine type: migraine (< 15 days per month) with aura Status migrainosus presence: without status migrainosus Intractability: intractable Qualified Code(s): G43.119 - Migraine with aura, intractable, without status migrainosus Instructions: DI for Migraine Activity Restrictions/Additional Instructions: Return with new or worsening symptoms. Take your medicines directed. Follow up PCP 1-2 weeks if no improvement in symptoms. Prescriptions: New pwkfnppgnk-offaclzedjxbh-ejbh [Fioricet] 50-300-40 mg capsule 1 cap PO Q4-6H PRN (Reason: pain) Qty: 30 0RF No Action spironolactone 50 mg tablet 50 mg PO BID Rx Instructions: take 1 tablet twice daily with 100 mg tablet famotidine [Acid Information Technology Security Analyst (famotidine)] 20 mg tablet 20 mg PO DAILY spironolactone 100 mg tablet 100 mg PO BID estradiol 2 mg tablet 2 mg PO BID Rx Instructions: Take 3 tablets (6mg) in morning and 2 tablets (4mg) at bedtime risperidone 1 mg tablet 1 mg PO QAM Qty: 90 3RF sertraline 100 mg tablet 150 mg PO BEDTIME Qty: 135 3RF propranolol 10 mg tablet 10 mg PO BID Qty: 60 3RF risperidone 2 mg tablet 3 mg PO BEDTIME Qty: 180 3RF bupropion HCl 150 mg tablet extended release 24 hr 150 mg PO QAM Qty: 90 3RF fluticasone propionate 50 mcg/actuation spray,suspension See Rx Instructions .ROUTE .COMPLEX Qty: 16 3RF Dose Instruction: ADMINISTER 2 SPRAYS INTRANASALLY TWICE A DAY Rx Instructions: ADMINISTER 2 SPRAYS INTRANASALLY TWICE A DAY (DME) Dexcom G7 Sensor Device MISCELLANEOUS Patient Comments: [NO ORIGINAL SIG] Humalog KwikPen Insulin 200 unit/mL (3 mL) insulin pen 1 sliding scale dose SUBCUT 5XD Patient Comments: [NO ORIGINAL SIG] (DME) Omnipod 5 G6-G7 Pods (Gen 5) Cartridge SUBCUT Patient Comments: [NO ORIGINAL SIG] diphenhydramine HCl [Allergy Relief(diphenhydramin)] 25 mg capsule 25 mg PO DAILY cholecalciferol (vitamin D3) [Vitamin D3] 50 mcg (2,000 unit) tablet 50 mcg PO DAILY Referrals: Arpita Gallardo MD [Primary Care Provider, Family Practice] Stand Alone Forms: Patient Portal/API
[2025-02-04] MEDS: LACTATED RINGERS 1,000 ML 1000 ML IV (21:44)
[2025-02-04] MEDS: droPERidol 2.5 MG/ML VIAL IV (21:44)
[2025-02-04] MEDS: KETOROLAC 30 MG/ML VIAL IV (21:44)
[2025-02-04] MEDS: diphenhydrAMINE 50 MG/ML VIAL IV (21:44)
== END 2025-02-04 22:55 | disposition home or self-care (01) ==
PROVIDERS: Emergency Provider Family Medicine; PCP Family Medicine
DX: G43.119 Migraine with aura, intractable, without status migrainosus (principal)
CPT/HCPCS: 82962; 96361; 96374; 96375; 99283; 99284; J1200; J1790; J1885

== ENCOUNTER 2025-04-05 18:32 | Emergency (ER) | payer OTHER, SELFPAY ==
[2025-04-05 18:48] VITALS: BP 111/67; PULSE 103; RESP 14; TEMP 36.2; O2SAT 98; BMI 29.2
[2025-04-05 22:14] VITALS: PULSE 90; O2SAT 95
[2025-04-05 22:30] VITALS: PULSE 102; O2SAT 96
[2025-04-05 23:00] VITALS: PULSE 91; O2SAT 95
--- NOTE | 2025-04-05 23:27 | ED_ITS ---
HPI - Dental/Oral General Chief complaint: Dental/Oral Stated complaint: Problems opening jaw, swelling x1day Time Seen by Provider: 04/05/25 22:04 Source: patient Mode of arrival: Ambulatory History of Present Illness HPI Narrative: 29-year-old type 1 diabetic since with right sided facial swelling resulting in difficulty opening up his mouth but he is not drooling and denies any fever, chills, sore throat, cough, nausea, vomiting, diarrhea, sick contacts. Patient denies stiff neck, rash, congestion, headache, dizziness, lightheadedness, dental pain. It all started yesterday and he also denies any trauma. Other than what is stated 14 point review of system is negative. Related Data Home Medications ?Medication ?Instructions ?Recorded ?Confirmed spironolactone 100 mg tablet 100 mg PO BID 05/25/21 estradiol 2 mg tablet 2 mg PO BID 09/20/21 5 famotidine 20 mg tablet (Acid 20 mg PO DAILY 09/25/22 02/21/25 Dentures Lab Technician (famotidine)) spironolactone 50 mg tablet 50 mg PO BID 09/25/2211/12 blood-glucose sensor (Dexcom G7 01/20/25 02/21/25 Sensor device) cholecalciferol (vitamin D3) 50 50 mcg PO DAILY 02/21/25 mcg (2,000 unit) tablet (Vitamin D3) diphenhydramine HCl 25 mg capsule 25 mg PO DAILY 01/2002/21/25 (Allergy Relief (diphenhydramine)) insulin lispro 200 unit/mL (3 mL) 1 sliding scale dose SUBCUT 5XD 01/20/25 02/21/25 subcutaneous pen (Humalog KwikPen U-200 Insulin) insulin pump cart,auto,BT,G6/7 01/20/25 02/21/25 (Omnipod 5 G6-G7 Pods (Gen 5) subcutaneous cartridge) Previous Rx's ?Medication ?Instructions ?Recorded bupropion HCl 150 mg 24 hr tablet, 150 mg PO QAM #90 t abs 06/22/24 extended release sertraline 100 mg tablet 150 mg (1.5 x 100 mg) PO BED TIME 11/16/24 #135 tabs fluticasone propionate 50 See Rx Instructions .Route 0 01/24/25 mcg/actuation nasal .COMPLEX #16 grams spray,suspension bhclspdcht-mqjwvkuorblts-igyiukku 1 cap PO Q4-6H PRN p ain #30 caps 02/04/25 50 mg-300 mg-40 mg capsule (Fioricet) sumatriptan succinate 25 mg tablet See Rx Instructions PO .COMPLEX 02/21/25 #20 tabs quetiapine 100 mg tablet 200 mg (2 x 100 mg) PO BEDTI ME 02/28/25 #180 tabs propranolol 10 mg tablet 10 mg PO BID #180 tabs 03/14 penicillin V potassium 500 mg 500 mg PO Q6H 7 days #28 tabs 04/06/25 tablet Allergies Allergy/AdvReac Type Severity Reaction Status Date / Time No Known Drug Allergies Allergy Verified 04/05/25 18:48 Review of Systems Review of Systems ROS Unobtainable: All systems reviewed & are unremarkable except as noted in HPI and below Patient History Medical History (Updated 04/06/25 @ 01:29 by Onesimo Parks DO) Gender dysphoria Depression with anxiety Type 1 diabetes (2010) Idiopathic pancreatitis (2013) Family History Grandfather Diabetes mellitus Cancer Social History marital status: unmarried,single number of children: 0 household members: family lives independently: No caregiver/support person: Yes housing: house education level: high school occupational status: unemployed second hand exposure: No alcohol intake: never substance use type: does not use Smoking Status: Unknown if ever smoked alcohol intake frequency: a few times a month Exam Narrative Exam Narrative: GENERAL: [29] year old patient appears stated age. Well-developed patient, in mild distress. HEAD: Atraumatic. Normocephalic. EYES: Pupils equal round and reactive. Extraocular motions intact. No scleral icterus. No injection or drainage. ENT: Nose without bleeding, purulent drainage. Throat without erythema, tonsillar hypertrophy or exudate. Airway patent. Right-sided submandibular swellining TTP, no dental caries noted NECK: Trachea midline. Non tender CARDIOVASCULAR: Regular rate and rhythm without murmurs, gallops, or rubs. RESPIRATORY: Clear to auscultation. Breath sounds equal bilaterally. No wheezes, rales, or rhonchi. GASTROINTESTINAL: Abdomen soft, non-tender, nondistended. EXTREMITIES: No edema or joint tenderness. BACK: Nontender without deformity or crepitance. No flank tenderness. NEURO: AOx3. SKIN: No rash or erythema of visible areas Initial Vital Signs Initial Vital Signs: Vital Signs Temperature 97.1 F L 04/05/25 18:48 Pulse Rate 103 H 04/05/25 18:48 Respiratory Rate 14 04/05/25 18:48 Blood Pressure 111/67 04/05/25 18:48 Pulse Oximetry 98 04/05/25 18:48 Oxygen Delivery Method Room Air 04/05/25 18:48 Course Orders Ordered: ED Orders 04/05/25 23:24 CBC Auto Diff [Complete Blood Count AUTO DIFF] Stat CMP [Comprehensive Metabolic Panel] Stat 04/05/25 23:25 CT soft tissue neck w con Stat Vital Signs Vital signs: Vital Signs - 8 hr 04/05/25 18:48 Temperature 97.1 F L Pulse Rate 103 H Respiratory Rate 14 Blood Pressure 111/67 Pulse Oximetry 98 Oxygen Delivery Method Room Air MDM - Dental/Oral Imaging Data CT - cervical spine: Radiologist's Impression: [place] [address] CT Scan Report Signed Patient: Jerry Tabares MR#: [id number] : 1995 Acct:[id number] Age/Sex: 29 / M Date of Service: 04/05/25 Loc: ED Accession Number: [id number] Procedure: CT soft tissue neck w con Ordering Provider: Onesimo Parks D.O. PROCEDURE: CT SOFT TISSUE NECK W CON INDICATIONS: R sided facial/neck swelling/pain TECHNIQUE: After the administration of intravenous contrast, 3.0 mm axial sections acquired from the sella to the aortic arch. Additional oblique axial 3.0 mm sections acquired through the pharynx. 3 mm thick coronal and sagittal reformats were generated. For radiation dose reduction, the following was used: automated exposure control. COMPARISON: [facility], CT, CT HEAD/BRAIN WO CON, 02/03/2025, 1:08. FINDINGS: Image quality: Excellent. Lymph nodes: Prominent right submandibular lymph nodes are seen measures up to 1.3 cm in short axis diameter series 2, image 46. Vessels: Visualized vasculature appears patent. Neck spaces: There is asymmetric prominence of right palatine tonsil and lingual tonsil with narrowing of right oral pharyngeal airway. Ill-defined hypodensity in deep soft tissue adjacent to inner aspect of right mandibular body near the 3rd molar tooth is seen series 2, image 42. No discrete drainable abscess collection. Rest of the airway is patent. No other soft tissue mass or fluid collection. Glands: The parotid and submandibular glands appear normal. Thyroid gland is within normal limits. Miscellaneous: Visualized brain and orbits appear normal. Lung apices appear clear. Superficial soft tissues appear normal. Bones: No suspicious bony lesions. Visualized sinuses and mastoids appear unremarkable. IMPRESSION: 1. Finding is concerning for right dental abscess adjacent to the right inferior 3rd molar tooth with ill-defined hypodensity as above. 2. Asymmetrically enlarged right palatine tonsil and lingual tonsil with narrowing of right oral pharyngeal airway concerning for tonsillitis. No drainable tonsillar abscess collection. 3. Enlarged right submandibular lymph nodes likely reactive in nature. [facility] Narrative Medical decision making narrative: Vital signs, nurse triage note, medication list previous ER visits, and all imaging studies reviewed. CT neck findings concerning for right dental abscess adjacent to the right inferior 3rd molar tooth with ill-defined hypodensity. Asymmetrical enlarged right palatine tonsil and lingual tonsil with narrowing of right oropharyngeal airway concerning for tonsillitis. No drainable tonsillar abscess collection. Enlarged right submandibular lymph node likely reactive in nature. WBC 12.3 with left shift. Sodium 135 glucose 102 Discharge Plan Departure Patient Disposition: Home Clinical Impression: Acute bacterial tonsillitis, Dental abscess Instructions: Tooth Abscess Activity Restrictions/Additional Instructions: Return with new or worsening symptoms. Take your medicines directed. Follow up with dentist call office for appointment this week. Prescriptions: New penicillin V potassium 500 mg tablet 500 mg PO Q6H 7 Days Qty: 28 0RF No Action spironolactone 50 mg tablet 50 mg PO BID Rx Instructions: take 1 tablet twice daily with 100 mg tablet famotidine [Acid Dentures Lab Technician (famotidine)] 20 mg tablet 20 mg PO DAILY sumatriptan succinate 25 mg tablet See Rx Instructions PO .COMPLEX Qty: 20 2RF Rx Instructions: take 1 tab at onset of headache; if no relief may repeat 1 tab after at least 2 hrs; max = 4 tabs/24 hr PO spironolactone 100 mg tablet 100 mg PO BID estradiol 2 mg tablet 2 mg PO BID Rx Instructions: Take 3 tablets (6mg) in morning and 2 tablets (4mg) at bedtime sertraline 100 mg tablet 150 mg PO BEDTIME Qty: 135 3RF quetiapine 100 mg tablet 200 mg PO BEDTIME Qty: 180 3RF bupropion HCl 150 mg tablet extended release 24 hr 150 mg PO QAM Qty: 90 3RF fluticasone propionate 50 mcg/actuation spray,suspension See Rx Instructions .ROUTE .COMPLEX Qty: 16 3RF Dose Instruction: ADMINISTER 2 SPRAYS INTRANASALLY TWICE A DAY Rx Instructions: ADMINISTER 2 SPRAYS INTRANASALLY TWICE A DAY propranolol 10 mg tablet 10 mg PO BID Qty: 180 0RF svfsmzgjzd-faqkhxpawdzmf-xzbh [Fioricet] 50-300-40 mg capsule 1 cap PO Q4-6H PRN (Reason: pain) Qty: 30 0RF (DME) Dexcom G7 Sensor Device MISCELLANEOUS Patient Comments: [NO ORIGINAL SIG] Humalog KwikPen Insulin 200 unit/mL (3 mL) insulin pen 1 sliding scale dose SUBCUT 5XD Patient Comments: [NO ORIGINAL SIG] (DME) Omnipod 5 G6-G7 Pods (Gen 5) Cartridge SUBCUT Patient Comments: [NO ORIGINAL SIG] diphenhydramine HCl [Allergy Relief(diphenhydramin)] 25 mg capsule 25 mg PO DAILY cholecalciferol (vitamin D3) [Vitamin D3] 50 mcg (2,000 unit) tablet 50 mcg PO DAILY Referrals: Arpita Gallardo MD [Primary Care Provider, Family Practice] Stand Alone Forms: Patient Portal/API
[2025-04-05 23:30] VITALS: PULSE 85; O2SAT 94
[2025-04-05] MEDS: LACTATED RINGERS 1,000 ML 1000 ML IV (23:55)
[2025-04-05] MEDS: KETOROLAC 30 MG/ML VIAL 15 MG IV (23:55)
[2025-04-06] VITALS (7 sets, daily range): BP systolic 119–120; BP diastolic 71–73; PULSE 74–87; TEMP 37.3; O2SAT 95–97
[2025-04-06 00:02] LABS: Add Manual Diff / Slide Review NO; Hematocrit 42.0 % (41-53); Hemoglobin 14.3 g/dL (13.5-17.5); Lymphocytes Absolute Auto 2400 /uL (1100-4500); Mean Corpuscular HGB Conc 34.0 % (30-36); Mean Corpuscular Hemoglobin 27.3 PG (26-34); Mean Corpuscular Volume 80.2 fL (80-100); Platelet Count 208 X10^3/uL (150-400)
[2025-04-06 00:15] LABS: Alanine Aminotransferase 13 IU/L (<50); Albumin 4.7 g/dL (3.5-5.0); Albumin Globulin Ratio 1.2 (1.0-2.8); Alkaline Phosphatase 75 U/L (38-126); Blood Urea Nitrogen 13 mg/dL (9-20); Calcium 9.5 mg/dL (8.4-10.2); Carbon Dioxide 22 mmol/L (22-32); Chloride 101 mmol/L (98-107); Estimated Glomerular Filt Rate > 60 mL/min (>60); Globulin 3.8 g/dL (1.7-4.1); Glucose 102 mg/dL (70-99); HEMOLYSIS < 15 (0-50); Potassium 3.8 mmol/L (3.4-5.1); Sodium 135 mmol/L (137-145); Total Protein 8.5 g/dL (6.3-8.2)
[2025-04-06] MEDS: methylPREDNISolone succ 125 MG/2 ML VIAL IV (01:34)
== END 2025-04-06 02:06 | disposition home or self-care (01) ==
PROVIDERS: Emergency Provider Family Medicine; PCP Family Medicine
DX: J03.80 Acute tonsillitis due to other specified organisms (principal); B96.89 Other specified bacterial agents as the cause of diseases classified elsewhere; K04.7 Periapical abscess without sinus; E10.9 Type 1 diabetes mellitus without complications
CPT/HCPCS: 36415; 70491; 80053; 85025; 96361; 96365; 96375; 99284; J0696; J1885; J2919; Q9967

== ENCOUNTER 2025-04-07 17:29 | Emergency (ER) | payer OTHER, SELFPAY ==
[2025-04-07 17:47] VITALS: BP 108/83; PULSE 77; RESP 16; TEMP 35.6; O2SAT 98; BMI 28.9
--- NOTE | 2025-04-07 20:14 | PC.NURSE ---
MD updated about patient. provider would to see the patient prior to orders. will continue to monitor. pt VS WNL.
--- NOTE | 2025-04-07 21:09 | ED.RECABL ---
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 Related Data Home Medications ?Medication ?Instructions ?Recorded ?Confirmed spironolactone 100 mg tablet 100 mg PO BID 05/25/21 02/21/25 estradiol 2 mg tablet 2 mg PO BID 09/20/21 02/21/25 famotidine 20 mg tablet (Acid 20 mg PO DAILY 09/25/22 02/21/25 Retail Sales Director (famotidine)) spironolactone 50 mg tablet 50 mg PO BID 09/25/22 02/21/25 blood-glucose sensor (Enviroo G7 01/20/25 02/21/25 Sensor device) cholecalciferol (vitamin D3) 50 50 mcg PO DAILY 01/20/25 02/21/25 mcg (2,000 unit) tablet (Vitamin D3) diphenhydramine HCl 25 mg capsule 25 mg PO DAILY 01/20/25 02/21/25 (Allergy Relief (diphenhydramine)) insulin lispro 200 unit/mL (3 mL) 1 sliding scale dose SUBCUT 5XD 01/20/25 02/21/25 subcutaneous pen (Humalog KwikPen U-200 Insulin) insulin pump cart,auto,BT,G6/7 01/20/25 02/21/25 (Omnipod 5 G6-G7 Pods (Gen 5) subcutaneous cartridge) Previous Rx's ?Medication ?Instructions ?Recorded bupropion HCl 150 mg 24 hr tablet, 150 mg PO QAM #90 tabs 06/22/24 extended release sertraline 100 mg tablet 150 mg (1.5 x 100 mg) PO BEDTIME 11/16/24 #135 tabs fluticasone propionate 50 See Rx Instructions .Route 01/24/25 mcg/actuation nasal .COMPLEX #16 grams spray,suspension acuprkjsap-eoblrqduwqjqb-rwopejbu 1 cap PO Q4-6H PRN pain #30 caps 02/04/25 50 mg-300 mg-40 mg capsule (Fioricet) sumatriptan succinate 25 mg tablet See Rx Instructions PO .COMPLEX 02/21/25 #20 tabs quetiapine 100 mg tablet 200 mg (2 x 100 mg) PO BEDTIME 02/28/25 #180 tabs propranolol 10 mg tablet 10 mg PO BID #180 tabs 03/14/25 penicillin V potassium 500 mg 500 mg PO Q6H 7 days #28 tabs 04/06/25 tablet Allergies Allergy/AdvReac Type Severity Reaction Status Date / Time No Known Drug Allergies Allergy Verified 04/05/25 18:48 Patient History Medical History (Updated 04/08/25 @ 00:23 by Chay Childs MD) Gender dysphoria Depression with anxiety Type 1 diabetes (2010) Idiopathic pancreatitis (2013) Family History Grandfather Diabetes mellitus Cancer Social History marital status: unmarried,single number of children: 0 household members: family lives independently: No caregiver/support person: Yes housing: house education level: high school occupational status: unemployed second hand exposure: No alcohol intake: never substance use type: does not use alcohol intake frequency: a few times a month Exam Narrative Exam Narrative: GENERAL: Well-developed patient, in mild distress. HEAD: Atraumatic. Normocephalic. EYES: Pupils equal round and reactive. Extraocular motions intact. No scleral icterus. No injection or drainage. ENT: Nose without bleeding, purulent drainage. Throat without erythema, tonsillar hypertrophy or exudate. Airway patent. Difficulty opening mouth, interdental distance 1.5 cm, difficult to see tonsils. NECK: Trachea midline. Submandibular swelling on the right side. CARDIOVASCULAR: Regular rate and rhythm without murmurs, gallops, or rubs. RESPIRATORY: Clear to auscultation. Breath sounds equal bilaterally. No wheezes, rales, or rhonchi. GASTROINTESTINAL: Abdomen soft, non-tender, nondistended. EXTREMITIES: No edema or joint tenderness. BACK: Nontender without deformity or crepitance. No flank tenderness. NEURO: AOx3. Motor functions grossly nonfocal. SKIN: No rash or erythema of visible areas Initial Vital Signs Initial Vital Signs: Vital Signs Temperature 96.0 F L 04/07/25 17:47 Pulse Rate 77 04/07/25 17:47 Respiratory Rate 16 04/07/25 17:47 Blood Pressure 108/83 04/07/25 17:47 Pulse Oximetry 98 04/07/25 17:47 Oxygen Delivery Method Room Air 04/07/25 17:47 Course Orders Ordered: ED Orders 04/07/25 21:14 CT soft tissue neck w con Stat 04/07/25 21:25 CBC Auto Diff [Complete Blood Count AUTO DIFF] Stat CMP [Comprehensive Metabolic Panel] Stat Discontinued Medications Dexamethasone (Dexamethasone 10 Mg/Ml Vial) 10 mg IV NOW ONE Stop: 04/07/25 21:15 Last Admin: 04/07/25 21:32 Dose: 10 mg Documented By: FIDEL Hydromorphone HCl (Hydromorphone Hcl 0.5 Mg/0.5 Ml Syringe) 0.5 mg IV NOW ONE Stop: 04/07/25 21:15 Last Admin: 04/07/25 21:31 Dose: 0.5 mg Documented By: FIDEL Ampicillin Sodium/Sulbactam (Sodium 3 gm/ Sodium Chloride) 100 mls @ 200 mls/hr IV NOW ONE Stop: 04/07/25 21:15 Last Infusion: 04/07/25 22:27 Dose: Infused Documented By: Admin: 04/07/25 21:32 Dose: 200 mls/hr Documented By: FIDEL Sodium Chloride (Normal Saline 0.9%) 1,000 mls @ 1,000 mls/hr IV BOLUS ONE Stop: 04/07/25 22:13 Last Infusion: 04/08/25 00:24 Dose: Infused Documented By: Admin: 04/07/25 21:32 Dose: 1,000 mls/hr Documented By: FIDEL Ketorolac Tromethamine (Ketorolac 30 Mg/Ml Vial) 15 mg IV NOW ONE Stop: 04/08/25 00:22 Last Admin: 04/08/25 01:25 Dose: 15 mg Documented By: BOB Ondansetron HCl (Ondansetron 4 Mg/2 Ml Inj) 4 mg IV NOW ONE Stop: 04/07/25 21:15 Last Admin: 04/07/25 21:32 Dose: 4 mg Documented By: FIDEL Vital Signs Vital signs: Vital Signs - 8 hr 04/07/25 23:00 04/07/25 23:30 04/08/25 00:00 Pulse Rate 91 H 72 79 Respiratory Rate 18 Blood Pressure 133/83 Pulse Oximetry 96 95 95 Oxygen Delivery Method Room Air 04/08/25 00:20 04/08/25 00:20 Pulse Rate 81 Respiratory Rate 16 Blood Pressure 126/87 Pulse Oximetry 97 Oxygen Delivery Method Room Air MDM - Recheck/Abnormal Lab/Rx Lab Data Attestation: I reviewed the patient's lab results. Lab results narrative: White blood cell count 68693, hemoglobin 13.3, platelets adequate. Glucose 161. Normal renal function. Sodium 132 slight decreased, normal potassium and serum carbon dioxide. Liver functions normal. 04/07/25 21:25 04/07/25 21:25 Labs: Lab Results 04/07/25 Range/Units 21:25 WBC 11.8 H (4.5-11.0) X10^3/uL RBC 4.82 (4.5-5.9) X10^6/uL Hgb 13.3 L (13.5-17.5) g/dL Hct 39.3 L (41-53) % MCV 81.5 (80-100) fL MCH 27.5 (26-34) PG MCHC 33.7 (30-36) % RDW 13.1 (11.6-14.8) % Plt Count 212 (150-400) X10^3/uL Neut % (Auto) 71.4 (50-75) % Lymph % (Auto) 18.1 L (25-40) % Sierra % (Auto) 9.8 (3-14) % Eos % (Auto) 0.3 L (2-4) % Baso % (Auto) 0.4 (0-2) % Neut # (Auto) 8400 H (3927-5425) /uL Lymph # (Auto) 2100 (1082-7051) /uL Sierra # (Auto) 1200 H (0-900) /uL Eos # (Auto) 0 (0-450) /uL Baso # (Auto) 0 (0-100) /uL Sodium 132 L (137-145) mmol/L Potassium 3.9 (3.4-5.1) mmol/L Chloride 98 (98-107) mmol/L Carbon Dioxide 24 (22-32) mmol/L BUN 10 (9-20) mg/dL Creatinine 0.81 (0.66-1.25) mg/dL Estimated GFR > 60 (>60) mL/min BUN/Creatinine Ratio 12.3 (6-22) Glucose 161 H (70-99) mg/dL Calcium 8.9 (8.4-10.2) mg/dL Total Bilirubin 0.9 (0.2-1.3) mg/dL AST 20 (17-59) IU/L ALT 13 (<50) IU/L Alkaline Phosphatase 70 (38-126) U/L Total Protein 7.5 (6.3-8.2) g/dL Albumin 4.2 (3.5-5.0) g/dL Globulin 3.3 (1.7-4.1) g/dL Albumin/Globulin Ratio 1.3 (1.0-2.8) Imaging Data CT soft tissue neck with IV contrast: Radiologist's Impression: [address] [address] [address] Scan Report Signed Patient: Jerry Tabares MR#: [id number] : 1995 Acct:[id number] Age/Sex: 29 / M Date of Service: 04/07/25 Loc: ED Accession Number: [id number] Procedure: CT soft tissue neck w con Ordering Provider: Chay Childs MD PROCEDURE: CT SOFT TISSUE NECK W CON INDICATIONS: right submandibular swelling TECHNIQUE: After the administration of intravenous contrast, 3.0 mm axial sections acquired from the sella to the aortic arch. Additional oblique axial 3.0 mm sections acquired through the pharynx. 3 mm thick coronal and sagittal reformats were generated. For radiation dose reduction, the following was used: automated exposure control. COMPARISON: [facility], CT, CT SOFT TISSUE NECK W CON, 04/05/2025, 23:38. FINDINGS: Image quality: Excellent. Lymph nodes: Prominent right submandibular lymph nodes are again seen measures up to 1.3 cm in size. No other neck soft tissue lymphadenopathy is seen. Vessels: Visualized vasculature appears patent. Neck spaces: Again noted are ill-defined hypodensity in soft tissue adjacent to right mandibular body near 3rd molar tooth now measures up to 2.4 x 1.4 cm in size series 2, image 42 concerning for dental abscess collection. Adjacent soft tissue swelling and edema is seen. Mild prominence of the right lingual tonsil and palatine tonsil is again seen with mild right oral pharyngeal airway narrowing. Rest of the airway is patent. Epiglottis and bilateral aryepiglottic folds are intact. Slight effacement of right piriform sinus is seen. Glands: The parotid and submandibular glands appear normal. Thyroid gland is within normal limits. Miscellaneous: Visualized brain and orbits appear normal. Lung apices appear clear. Superficial soft tissues appear normal. Bones: No suspicious bony lesions. Retention cyst versus mucocele in left maxillary sinus is seen. Rest of the visualized sinuses and mastoids appear unremarkable. IMPRESSION: 1. Interval worsening of right facial soft tissue cellulitis adjacent to right mandible with suggestion of right periodontal/dental abscess collection along inner aspect of right mandibular body near 3rd molar tooth increased in size compared to previous study. 2. Persistent enlarged right submandibular lymph nodes likely reactive in nature. 3. Mild prominence of right palatine tonsil and lingual tonsil increased in size without discrete tonsillar abscess collection. Mild right oral pharyngeal airway narrowing and mild effacement of right piriform sinus. Rest of the airway is patent. Dictated by: Prince Kelly M.D. on 04/07/2025 at 21:47 Approved by: Prince Kelly M.D. on 04/07/2025 at 21:56 MDM Narrative Medical decision making narrative: 29-year-old male day to oral amoxicillin for acute tonsillitis and possible dental abscess, increasing pain and difficulty opening mouth, painful swallowing of secretions. Normal phonation. Afebrile, sirs screen negative. Moves neck well. Swelling to the right submandibular region. Lab data: White blood cell count 49354, hemoglobin 13.3, platelets adequate. Glucose 161. Normal renal function. Sodium 132 slight decreased, normal potassium and serum carbon dioxide. Liver functions normal. CT soft tissue neck. Impressions: ?1. Interval worsening of right facial soft tissue cellulitis adjacent to right mandible with suggestion of right periodontal/dental abscess collection along inner aspect of right mandibular body near 3rd molar tooth increased in size compared to previous study. 2. Persistent enlarged right submandibular lymph nodes likely reactive in nature. 3. Mild prominence of right palatine tonsil and lingual tonsil increased in size without discrete tonsillar abscess collection. Mild right oral pharyngeal airway narrowing and mild effacement of right piriform sinus. Rest of the airway is patent. See radiology report. We will consult Oral surgery, none on staff here, we will consult [facility]. Images pushed. 0010, case discussed with [facility] intake, await call back from oral surgery. Keep NPO. 0020, case discussed with oral surgery Dr. Marquez of [facility], who reviewed images, accepts for transfer, likely bedside surgical drainage, if not successful then in OR. We will keep NPO. Transfer by ground ALS, monitor airway during transport Discharge Plan Departure Patient Disposition: [facility] Clinical Impression: Dental abscess, Acute tonsillitis Prescriptions: No Action spironolactone 50 mg tablet 50 mg PO BID Rx Instructions: take 1 tablet twice daily with 100 mg tablet famotidine [Acid Retail Sales Director (famotidine)] 20 mg tablet 20 mg PO DAILY sumatriptan succinate 25 mg tablet See Rx Instructions PO .COMPLEX Qty: 20 2RF Rx Instructions: take 1 tab at onset of headache; if no relief may repeat 1 tab after at least 2 hrs; max = 4 tabs/24 hr PO spironolactone 100 mg tablet 100 mg PO BID estradiol 2 mg tablet 2 mg PO BID Rx Instructions: Take 3 tablets (6mg) in morning and 2 tablets (4mg) at bedtime sertraline 100 mg tablet 150 mg PO BEDTIME Qty: 135 3RF quetiapine 100 mg tablet 200 mg PO BEDTIME Qty: 180 3RF bupropion HCl 150 mg tablet extended release 24 hr 150 mg PO QAM Qty: 90 3RF fluticasone propionate 50 mcg/actuation spray,suspension See Rx Instructions .ROUTE .COMPLEX Qty: 16 3RF Dose Instruction: ADMINISTER 2 SPRAYS INTRANASALLY TWICE A DAY Rx Instructions: ADMINISTER 2 SPRAYS INTRANASALLY TWICE A DAY propranolol 10 mg tablet 10 mg PO BID Qty: 180 0RF [id number] [Fioricet] 50-300-40 mg capsule 1 cap PO Q4-6H PRN (Reason: pain) Qty: 30 0RF (DME) Dexcom G7 Sensor Device MISCELLANEOUS Patient Comments: [NO ORIGINAL SIG] Humalog KwikPen Insulin 200 unit/mL (3 mL) insulin pen 1 sliding scale dose SUBCUT 5XD Patient Comments: [NO ORIGINAL SIG] (DME) Omnipod 5 G6-G7 Pods (Gen 5) Cartridge SUBCUT Patient Comments: [NO ORIGINAL SIG] diphenhydramine HCl [Allergy Relief(diphenhydramin)] 25 mg capsule 25 mg PO DAILY cholecalciferol (vitamin D3) [Vitamin D3] 50 mcg (2,000 unit) tablet 50 mcg PO DAILY penicillin V potassium 500 mg tablet 500 mg PO Q6H 7 Days Qty: 28 0RF Referrals: Arpita Gallardo MD [Primary Care Provider, Family Practice]
--- NOTE | 2025-04-07 21:14 | DI.CT.S_ITS ---
PROCEDURE: CT SOFT TISSUE NECK W CON INDICATIONS: right submandibular swelling TECHNIQUE: After the administration of intravenous contrast, 3.0 mm axial sections acquired from the sella to the aortic arch. Additional oblique axial 3.0 mm sections acquired through the pharynx. 3 mm thick coronal and sagittal reformats were generated. For radiation dose reduction, the following was used: automated exposure control. COMPARISON: [facility], CT, CT SOFT TISSUE NECK W CON, 04/05/2025, 23:38. FINDINGS: Image quality: Excellent. Lymph nodes: Prominent right submandibular lymph nodes are again seen measures up to 1.3 cm in size. No other neck soft tissue lymphadenopathy is seen. Vessels: Visualized vasculature appears patent. Neck spaces: Again noted are ill-defined hypodensity in soft tissue adjacent to right mandibular body near 3rd molar tooth now measures up to 2.4 x 1.4 cm in size series 2, image 42 concerning for dental abscess collection. Adjacent soft tissue swelling and edema is seen. Mild prominence of the right lingual tonsil and palatine tonsil is again seen with mild right oral pharyngeal airway narrowing. Rest of the airway is patent. Epiglottis and bilateral aryepiglottic folds are intact. Slight effacement of right piriform sinus is seen. Glands: The parotid and submandibular glands appear normal. Thyroid gland is within normal limits. Miscellaneous: Visualized brain and orbits appear normal. Lung apices appear clear. Superficial soft tissues appear normal. Bones: No suspicious bony lesions. Retention cyst versus mucocele in left maxillary sinus is seen. Rest of the visualized sinuses and mastoids appear unremarkable. IMPRESSION: 1. Interval worsening of right facial soft tissue cellulitis adjacent to right mandible with suggestion of right periodontal/dental abscess collection along inner aspect of right mandibular body near 3rd molar tooth increased in size compared to previous study. 2. Persistent enlarged right submandibular lymph nodes likely reactive in nature. 3. Mild prominence of right palatine tonsil and lingual tonsil increased in size without discrete tonsillar abscess collection. Mild right oral pharyngeal airway narrowing and mild effacement of right piriform sinus. Rest of the airway is patent. Dictated by: Prince Kelly M.D. on 04/07/2025 at 21:47 Approved by: Prince Kelly M.D. on 04/07/2025 at 21:56
[2025-04-07] MEDS: SODIUM CHLORIDE 0.9% 1,000 ML 1000 ML IV (21:32)
[2025-04-07] MEDS: AMPICILLIN/SULBACTAM 3 GM 3 GM in SODIUM CHLORIDE 0.9% 100 ML IV (21:32)
[2025-04-07] MEDS: ONDANSETRON 4 MG/2 ML INJ IV (21:32)
[2025-04-07 21:46] LABS: Add Manual Diff / Slide Review NO; Hematocrit 39.3 % (41-53); Hemoglobin 13.3 g/dL (13.5-17.5); Lymphocytes Absolute Auto 2100 /uL (1100-4500); Mean Corpuscular HGB Conc 33.7 % (30-36); Mean Corpuscular Hemoglobin 27.5 PG (26-34); Mean Corpuscular Volume 81.5 fL (80-100); Platelet Count 212 X10^3/uL (150-400)
[2025-04-07 21:54] LABS: Alanine Aminotransferase 13 IU/L (<50); Albumin 4.2 g/dL (3.5-5.0); Albumin Globulin Ratio 1.3 (1.0-2.8); Alkaline Phosphatase 70 U/L (38-126); Blood Urea Nitrogen 10 mg/dL (9-20); Calcium 8.9 mg/dL (8.4-10.2); Carbon Dioxide 24 mmol/L (22-32); Chloride 98 mmol/L (98-107); Estimated Glomerular Filt Rate > 60 mL/min (>60); Globulin 3.3 g/dL (1.7-4.1); Glucose 161 mg/dL (70-99); HEMOLYSIS < 15 (0-50); Potassium 3.9 mmol/L (3.4-5.1); Sodium 132 mmol/L (137-145); Total Protein 7.5 g/dL (6.3-8.2)
[2025-04-07 23:00] VITALS: PULSE 91; O2SAT 96
[2025-04-07 23:30] VITALS: PULSE 72; O2SAT 95
[2025-04-08] VITALS: BP 133/83; PULSE 79; RESP 18; O2SAT 95
[2025-04-08 00:20] VITALS: BP 126/87; PULSE 81; RESP 16; O2SAT 97
[2025-04-08] MEDS: KETOROLAC 30 MG/ML VIAL 15 MG IV (01:25)
== END 2025-04-08 01:38 | disposition short-term general hospital (02) ==
PROVIDERS: Emergency Provider Emergency Medicine; PCP Family Medicine
DX: K04.7 Periapical abscess without sinus (principal); J03.90 Acute tonsillitis, unspecified
CPT/HCPCS: 70491; 80053; 85025; 96361; 96365; 96375; 99283; 99284; J0295; J1100; J1171; J1885; J2405; Q9967